=== PATIENT | female | born 1945 | race Caucasian/White ===

== ENCOUNTER 2020-06-24 13:31 | Emergency (ER) | payer MEDICARE ==
[2020-06-24 14:21] VITALS: BP 138/62; PULSE 92; RESP 18; TEMP 98
--- NOTE | 2020-06-24 14:57 | XR ---
Result: Clinical History: Pain status post fall. Comparison: None available. Technique: 3 views of the right ankle. 3 views of the right foot. Findings: The bone mineralization is age-appropriate. Right ankle: There is no acute fracture or dislocation. The visualized osseous structures are in oswaldo tomic alignment. Moderate Achilles related calcaneal enthesopathy. Otherwise the joint spaces are pr eserved. The talar dome is intact and the ankle mortise is congruent. Right foot: There is questionable cortical irregularity of the second metatarsal shaft. The remainin g visualized osseous structures are in anatomic alignment. There are scattered mild degenerative penny nges. IMPRESSION: Questionable nondisplaced fracture of the second metatarsal. Recommend correlation with point tendern ess and repeat imaging in 7-10 days as indicated. No acute fracture of the right ankle.
--- NOTE | 2020-06-24 15:17 | ED ---
Lower Extremity Injury HPI - General Chief Complaint: Extremity Injury, Lower Stated Complaint: Pain in foot Source: patient, RN notes reviewed Mode of arrival: wheelchair Limitations: no limitations - History of Present Illness Initial Comments: Patient is a 74-year-old female that presents to the emergency department complaining of right foot pain on the lateral aspect. She notes that she was walking outside to grab her mail went to step up on her porch with a right foot and felt a crunching popping noise. She noted that she didn't roll it twisted or fall. She wanted to come in to make sure everything was okay due to some pain this been constant since yesterday. She denied the need for any pain medication as it was tolerable. She notes that she can walk on it is just uncomfortable. She denied any weakness numbness tingling swelling decreased range of motion or strength chest pain shortness of breath headache nausea vomiting diarrhea constipation fever fatigue chills - Related Data Allergies Allergy/AdvReac Type Severity Reaction Status Date / Time grapefruit Allergy Rash/Hives Verified 06/24/20 14:22 orange Allergy Rash/Hives Verified 06/24/20 14:22 tomato Allergy Rash/Hives Verified 06/24/20 14:22 amoxicillin [From Augmentin] AdvReac Abdominal Verified 06/24/20 14:22 Pain clavulanic acid AdvReac Abdominal Verified 06/24/20 14:22 [From Augmentin] Pain Review of Systems ROS Statement: Those systems with pertinent positive or pertinent negative responses have been documented in the HPI. ROS Other: All systems not noted in ROS Statement are negative. Past Medical History Past Medical History: Diabetes Mellitus, Hyperlipidemia Additional Past Medical History / Comment(s): chronic broncitis- takes breathing treatments History of Any Multi-Drug Resistant Organisms: None Reported Past Surgical History: Section, Joint Replacement, Orthopedic Surgery Past Psychological History: No Psychological Hx Reported Smoking Status: Former smoker Past Alcohol Use History: Rare Past Drug Use History: None Reported General Exam Limitations: no limitations General appearance: alert, in no apparent distress, obese Head exam: Present: atraumatic, normocephalic, normal inspection Eye exam: Present: normal appearance, PERRL, EOMI. Absent: scleral icterus, conjunctival injection, periorbital swelling Neck exam: Present: normal inspection. Absent: tenderness, meningismus, lymphadenopathy Respiratory exam: Present: normal lung sounds bilaterally. Absent: respiratory distress, wheezes, rales, rhonchi, stridor Cardiovascular Exam: Present: regular rate, normal rhythm, normal heart sounds. Absent: systolic murmur, diastolic murmur, rubs, gallop, clicks GI/Abdominal exam: Present: soft, normal bowel sounds. Absent: distended, tenderness, guarding, rebound, rigid Extremities exam: Present: normal inspection, full ROM, normal capillary refill, other (No point tenderness over second metatarsal, patient states pain is mostly on the lateral aspect of the foot.). Absent: tenderness, pedal edema, joint swelling, calf tenderness Neurological exam: Present: alert, oriented X3, CN II-XII intact Psychiatric exam: Present: normal affect, normal mood Skin exam: Present: warm, dry, intact, normal color. Absent: rash Course Vital Signs 06/24/20 14:17 Temperature 98 F Pulse Rate 92 Respiratory 18 Rate Blood Pressure 138/62 O2 Sat by Pulse 95 Oximetry Medical Decision Making - Medical Decision Making 74-year-old female with right foot pain on the lateral aspect. Right foot and ankle x-ray ordered. X-ray showed a questionable nondisplaced fracture of the second metatarsal repeat x-rays if pain continues. Patient declined the need for any pain medication or splinting as there was no point tenderness over that aspect of the foot. Also likely a foot sprain due to physical exam findings and x-ray findings. Patient states that she has Tylenol Motrin at home that she can take and does not need any thinks in to her pharmacy. Case discussed with Dr. Mary, patient can discharge home with follow-up to primary care. - Radiology Data Radiology results: report reviewed, image reviewed Right ankle and foot x-ray: Questionable nondisplaced fracture of the second metatarsal shaft. Recommend correlation with point tenderness and repeat imaging in 7-10 days as indicated. No acute fracture of the right ankle. Disposition Clinical Impression: Foot sprain, Right ankle sprain Disposition: HOME SELF-CARE Condition: Stable Instructions (If sedation given, give patient instructions): Ankle Sprain (ED), Foot Sprain (ED) Additional Instructions: Please return to the Emergency Department if symptoms worsen or any other concerns. Follow-up primary care in 3-5 days. If any tenderness or pain over the second toe occurs please return for follow-up imaging. Use as tolerated, try to keep it elevated with ice and compression. Continue to take [id number] anti-inflammatories for any symptomatic management. Is patient prescribed a controlled substance at d/c from ED?: No Referrals: Eloy Rudolph DO [Primary Care Provider] - 1-2 days Time of Disposition: 15:17
== END 2020-06-24 15:50 | disposition home or self-care (01) ==
LOC: EC 13:31
DX: S93.601A Unspecified sprain of right foot, initial encounter (principal); S93.401A Sprain of unspecified ligament of right ankle, initial encounter; I10 Essential (primary) hypertension; E78.5 Hyperlipidemia, unspecified; Z87.891 Personal history of nicotine dependence; X58.XXXA Exposure to other specified factors, initial encounter; Y93.01 Activity, walking, marching and hiking
CPT/HCPCS: 99283

== ENCOUNTER 2020-08-04 13:14 | Emergency (ER) | payer MEDICARE ==
[2020-08-04 13:56] VITALS: BP 138/60; PULSE 115; RESP 18; TEMP 97.9
--- NOTE | 2020-08-04 14:38 | ED ---
ENT HPI - General Chief complaint: ENT Stated complaint: R face swelling Time Seen by Provider: 08/04/20 14:07 Source: patient Mode of arrival: ambulatory Limitations: no limitations - History of Present Illness Initial comments: 74-year-old diabetic female presents emergency Department with a chief complaint of facial swelling. Patient reports she woke up this morning and noticed a "knot" near the angle of the right mandible. Patient reports it gradually increased and swelling. States she is not able to fully open the mouth and it is tender to the touch. She does report slight erythema over the skin but not significant. Denies any injuries to the region. She does wear dentures, top and bottom. She denies any discharge from inside of the mouth. Denies any pain in the ear or any posterior auricular erythema or swelling. - Related Data Allergies Allergy/AdvReac Type Severity Reaction Status Date / Time grapefruit Allergy Rash/Hives Verified 08/04/20 13:56 orange Allergy Rash/Hives Verified 08/04/20 13:56 tomato Allergy Rash/Hives Verified 08/04/20 13:56 amoxicillin [From Augmentin] AdvReac Abdominal Verified 08/04/20 13:56 Pain clavulanic acid AdvReac Abdominal Verified 08/04/20 13:56 [From Augmentin] Pain Review of Systems ROS Statement: Those systems with pertinent positive or pertinent negative responses have been documented in the HPI. ROS Other: All systems not noted in ROS Statement are negative. Past Medical History Past Medical History: Diabetes Mellitus, Hyperlipidemia Additional Past Medical History / Comment(s): chronic broncitis- takes breathing treatments History of Any Multi-Drug Resistant Organisms: None Reported Past Surgical History: Section, Joint Replacement, Orthopedic Surgery Past Psychological History: No Psychological Hx Reported Smoking Status: Former smoker Past Alcohol Use History: Rare Past Drug Use History: None Reported General Exam Limitations: no limitations General appearance: alert, in no apparent distress Head exam: Present: atraumatic, normocephalic, normal inspection Eye exam: Present: normal appearance, PERRL, EOMI Pupils: Present: normal accommodation ENT exam: Present: normal exam, mucous membranes moist, TM's normal bilaterally, normal external ear exam (No signs of otitis externa. No signs of mastoiditis.). Absent: normal oropharynx (Right-sided facial swelling over the parotid gland. She does have top and bottom dentures. No signs of pustular discharge near the parotid duct in the intraoral cavity.) Neck exam: Present: normal inspection, full ROM. Absent: tenderness Respiratory exam: Present: normal lung sounds bilaterally. Absent: respiratory distress, wheezes, rales, rhonchi, stridor, chest wall tenderness, accessory muscle use Cardiovascular Exam: Present: regular rate, normal rhythm, normal heart sounds. Absent: systolic murmur, diastolic murmur Extremities exam: Present: normal inspection, full ROM, normal capillary refill. Absent: tenderness, pedal edema, joint swelling Back exam: Present: normal inspection, full ROM. Absent: tenderness, CVA tenderness (R), CVA tenderness (L) Neurological exam: Present: alert, oriented X3 Psychiatric exam: Present: normal affect, normal mood Skin exam: Present: warm, dry, intact, normal color Course Vital Signs 08/04/20 13:52 Temperature 97.9 F Pulse Rate 115 H Respiratory 18 Rate Blood Pressure 138/60 O2 Sat by Pulse 95 Oximetry Medical Decision Making - Medical Decision Making 74-year-old female presents emergency Department with chief complaint of right- sided facial swelling. On physical examination, tenderness and swelling over the right parotid gland. However, there is no pustular discharge in the intraoral cavity. I suspect possible parotitis. She is diabetic. I did advise warm compresses and applying lemon drops or any food that would promote salivary secretion. Patient is ALLERGIC to amoxicillin so I will start her on clindamycin. Return parameters were thoroughly discussed the patient was understanding and agreeable. Case discussed with Disposition Clinical Impression: Swelling of right side of face Disposition: HOME SELF-CARE Condition: Stable Instructions (If sedation given, give patient instructions): Sialoadenitis (ED) Additional Instructions: Take prescribed medication as directed. Apply warm compresses. Apply small lemon drops or anything to promote salivary secretion. Return to emergency department if symptoms worsen. Is patient prescribed a controlled substance at d/c from ED?: No Referrals: Eloy Rudolph DO [Primary Care Provider] - 1-2 days Time of Disposition: 14:38
== END 2020-08-04 14:48 | disposition home or self-care (01) ==
LOC: EC 13:14
DX: R22.0 Localized swelling, mass and lump, head (principal); E11.9 Type 2 diabetes mellitus without complications; E78.5 Hyperlipidemia, unspecified; Z87.891 Personal history of nicotine dependence; Z88.0 Allergy status to penicillin; Z88.1 Allergy status to other antibiotic agents
CPT/HCPCS: 99282

== ENCOUNTER → 2020-10-16 | Outpatient (CLI) | payer MEDICARE ==
--- NOTE | 2020-10-16 16:17 | XR ---
EXAMINATION TYPE: XR foot complete RT DATE OF EXAM: 10/16/2020 COMPARISON: 06/24/2020 HISTORY: 75-year-old female with right foot pain TECHNIQUE: 3 views FINDINGS: Moderate degenerative change first MTP joint with joint space narrowing, marginal spurring, and bunion formation. Osteopenia. Stable os peroneum. Fragmented enthesopathy at the Achilles insert ion, posterior calcaneus is unchanged. No acute fracture, subluxation, dislocation seen. IMPRESSION: Osteopenia and moderate first MTP joint OA. No acute osseous abnormality seen.
== END | disposition home or self-care (01) ==
LOC: RADXRMAIN 15:07
PROVIDERS: ATTEND Family Medicine
DX: M19.071 Primary osteoarthritis, right ankle and foot (principal); M85.871 Other specified disorders of bone density and structure, right ankle and foot

== ENCOUNTER → 2021-01-30 | Outpatient (CLI) | payer MEDICARE ==
--- NOTE | 2021-01-31 04:38 | BD ---
EXAMINATION TYPE: Axial Bone Density DATE OF EXAM: 01/30/2021 COMPARISON: 2012 CLINICAL HISTORY: 75-year-old female postmenopausal screening Nuclear Medicine Study in the last 2 weeks: NO Barium Study in the last week: NO : NO Height: 66 Weight: 277.5 FRAX RISK QUESTIONS: Alcohol (3 or more units per day): NO Family History (Parent hip fracture): NO Glucocorticoids (More than 3mos): NO (Ex: prednisone, prednisolone, methylprednisolone, dexamethasone, and hydrocortisone). History of Fracture in Adulthood: YES Secondary Osteoporosis: 1. Type 1 Diabetes: TYPE 2 2. Hyperthyroidism: NO 3. Menopause before 45: NO 4. Malnutrition: NO 5. Chronic liver disease: NO Rheumatoid Arthritis: NO Current Tobacco Use: NO RISK FACTORS HISTORY OF: Surgery to Spine/Hip(right/left)/Wrist (right/left): NO When: Family History of Osteoporosis: NO Active: NO Diet low in dairy products/other sources of calcium: NO Postmenopausal woman: YES If Premenopausal, do you have irregular periods: Take estrogen and/or progesterone medications: NO How long: Lost more than 2 inches in height since high school: YES Frequent falls: NO Poor Health: GOOD Hyperparathyroidism: NO Adrenal Insufficiency: NO MEDICATIONS: Prednisone or other steroids: NO How Long: Thyroid Medications: NO Which medication: How Long: Osteoporosis Medications: NO Which medication: How Long: Additional Medications: GLIPIZIDE, DONEPEZIL, LORAZEPAM, SIMVASTATIN, DUONEB, ROPINIROLE, ASPIRIN BUM ETANIDE, POT CHLOR ER, LATANOPROST, LUTEIN AND ZEAXANTHIN VIT C AND VIT D AND WOMEN'S ONE A DAY. Additional History: EXAM MEASUREMENTS: Bone mineral densitometry was performed using the [employer] System. Bone mineral density as measured about the Lumbar spine is: ----- L1-L4(G/cm2): 1.173 T Score Values are as follows: ----- L2: -0.9 ----- L3: 1.5 ----- L4: 0.4 ----- L1-L4: -0.1 Bone mineral density has: INCREASED 0.1 % since study of: 2012 Bone mineral density about the R hip (g/cm2): 0.818 Bone mineral density about the L hip (g/cm2): 0.860 T Score values are as follows: -----R Neck: -1.6 -----L Neck: -1.3 -----R Total: -1.8 -----L Total: -1.3 Bone mineral density has: DECREASED -4.4 % since study of: 2013 IMPRESSION: Osteopenia (T Score between -2.5 and -1). There is slightly increased risk of fracture and the patient may be considered for treatment. Re-Screen 2-5 years. NOTE: T-SCORE=SD OF THE YOUNG ADULT MEAN.
== END | disposition home or self-care (01) ==
LOC: RADBDWWP 14:51
PROVIDERS: ATTEND Family Medicine
DX: M85.89 Other specified disorders of bone density and structure, multiple sites (principal); Z78.0 Asymptomatic menopausal state; Z79.82 Long term (current) use of aspirin; Z79.84 Long term (current) use of oral hypoglycemic drugs
CPT/HCPCS: 77080

== ENCOUNTER 2021-06-26 11:46 | Emergency (ER) | payer MEDICARE ==
[2021-06-26 11:56] VITALS: BP 149/54; PULSE 99; RESP 20; TEMP 97.1
[2021-06-26] MEDS ORDERED: HYDROcodone/APAP 5-325MG 1 EACH TAB PO STA (12:16)
[2021-06-26] MEDS ORDERED: DIPH,PERTUS(ACELL)TETVAC-LF 0.5 ML VIAL IM ONE (12:16)
--- NOTE | 2021-06-26 13:14 | XR ---
EXAMINATION TYPE: XR ribs LT w pa chest xray, 5 views DATE OF EXAM: 06/26/2021 Comparison: 02/22/2013 Clinical History: 75-year-old female left rib pain after falling, trauma Findings: Heart upper limits of normal in size. Mild atherosclerotic arch calcifications. Hyperinflation. Stran dy atelectasis in the lower lungs. Mild to moderate degenerative change left glenohumeral joint. Mild to moderate degenerative changes bilateral AC joints. No displaced rib fractures seen. Impression: 1. COPD and borderline heart size. Strandy areas of atelectasis lower lungs. No acute cardiopulmonary process. 2. No displaced left rib fracture seen.
--- NOTE | 2021-06-26 13:16 | XR ---
EXAMINATION TYPE: XR wrist complete LT DATE OF EXAM: 06/26/2021 COMPARISON: NONE HISTORY: 75-year-old female left wrist pain after falling TECHNIQUE: 4 views FINDINGS: Osteopenia. Moderate degenerative change at the basal joint of the thumb. There is some fragmentation at the radial styloid process with overlying soft tissue swelling. The radiocarpal and distal radial ulnar joint as well as the midcarpal compartment appear intact. Some bony irregularity along the mary ricardo triquetrum also noted on the lateral view with some overlying soft tissue swelling. IMPRESSION: Suspect some chip fractures from the radial styloid process with overlying soft tissue swelling. Roxanne haley, suspect some chip fractures from the dorsal triquetrum on the lateral view with soft tissue sw elling. Osteopenia. Moderate OA at the base of the thumb.
--- NOTE | 2021-06-26 13:51 | CT ---
EXAMINATION TYPE: CT brain wo con, CT facial bones wo con DATE OF EXAM: 06/26/2021 COMPARISON: None available HISTORY: Fall CT DLP: 1322.4 (accession [id number]), included in brain (accession [id number]) mGycm Automated exposure control for dose reduction was used. TECHNIQUE: CT scan of the brain and facial bones is performed without IV contrast administration. FINDINGS: Partial empty sella. Brain volume loss changes, likely age-related. Scattered arterial atheroscleroti c calcifications. No acute intracranial hemorrhage. No gross acute cortical infarct. No midline shift , herniation or ventriculomegaly. Unremarkable rangel-white matter differentiation, basal cisterns and CP angles. No gross space-occupyin g lesion, vasogenic edema or mass effect. No definite acute calvarial bone fracture identified. Osteopenia. Degenerative changes of the visuali zed portion of the cervical spine. Clear mastoid air cells. Fracture of the anterior aspect of the bony nasal septum with convexity to the right side. Soft tissu e swelling/hematoma overlying the nasal bones and the medial aspect of the left orbit. Mild mucosal thickening of the ethmoid air cells and left sphenoid sinus compartment. Clear remainder of the paranasal sinuses. Unremarkable orbits. No other definite acute facial bone fracture identifi ed. IMPRESSION: No acute intracranial posttraumatic sequela or acute calvarial bone fracture. Fractured anterior aspe ct of the bony nasal septum with bony nasal septum deviation as described above. Associated overlying soft tissue swelling/hematoma. No other definite acute facial bone fracture identified. Incidental f indings as described above.
--- NOTE | 2021-06-26 15:31 | ED ---
Fall HPI - General Chief Complaint: Fall Stated Complaint: Fall-Facial injury Time Seen by Provider: 06/26/21 12:05 Source: patient Mode of arrival: EMS - History of Present Illness Initial Comments: Patient presents to the emerge department after a trip and fall. She injured her nose and left upper extremity. She has no belly or back pain. She injured her left upper chest as well. She has taken no medicine for this. She had no loss of consciousness. She has no nausea or vomiting. She has no pain with extraocular movements. She has no change in her vision or hearing. She has no pain or injuries to the legs. - Related Data Home Medications Medication Instructions Recorded Confirmed Ascorbic Acid [Vitamin C] 500 mg PO DAILY 06/26/21 06/26/21 Aspirin EC [Ecotrin Low Dose] 81 mg PO DAILY 06/26/21 06/26/21 Bumetanide 2 mg PO DAILY@1800 06/26/21 06/26/21 Cholecalciferol (Vitamin D3) 75 mcg PO DAILY 06/26/21 06/26/21 [Vitamin D3 (3000 Iu)] Donepezil [Aricept] 10 mg PO HS 06/26/21 06/26/21 LORazepam [Ativan] 1 mg PO BID PRN 06/26/21 06/26/21 Latanoprost/Pf [Latanoprost 0.005% 1 drop BOTH EYES HS 06/26/21 06/26/21 Eye Drop] Lutein And Zeaxanthin 1 tab PO DAILY 06/26/21 06/26/21 Potassium Chloride ER [K-Dur 20] 20 meq PO BID 06/26/21 06/26/21 Simvastatin [Zocor] 20 mg PO HS 06/26/21 06/26/21 Vitamin E (Dl,Tocopheryl Acet) 400 unit PO DAILY 06/26/21 06/26/21 [Vitamin E (400 Iu = 180 mg)] glipiZIDE XL [Glucotrol XL] 2.5 mg PO DAILY 06/26/21 06/26/21 rOPINIRole HCL [Requip] 1 mg PO HS 06/26/21 06/26/21 Allergies Allergy/AdvReac Type Severity Reaction Status Date / Time grapefruit Allergy Rash/Hives Verified 06/26/21 14:04 orange Allergy Rash/Hives Verified 06/26/21 14:04 tomato Allergy Rash/Hives Verified 06/26/21 14:04 amoxicillin [From Augmentin] AdvReac Abdominal Verified 06/26/21 14:04 Pain clavulanic acid AdvReac Abdominal Verified 06/26/21 14:04 [From Augmentin] Pain Review of Systems ROS Statement: Those systems with pertinent positive or pertinent negative responses have been documented in the HPI. ROS Other: All systems not noted in ROS Statement are negative. Past Medical History Past Medical History: Diabetes Mellitus, Hyperlipidemia Additional Past Medical History / Comment(s): chronic broncitis- takes breathing treatments History of Any Multi-Drug Resistant Organisms: None Reported Past Surgical History: Section, Joint Replacement, Orthopedic Surgery Past Psychological History: No Psychological Hx Reported Smoking Status: Former smoker Past Alcohol Use History: Rare Past Drug Use History: None Reported General Exam Limitations: no limitations General appearance: alert, in no apparent distress Head exam: Present: atraumatic, normocephalic, normal inspection Eye exam: Present: normal appearance, PERRL, EOMI. Absent: scleral icterus, conjunctival injection, periorbital swelling ENT exam: Present: normal exam, mucous membranes moist, other (No evidence of septal hematoma) Neck exam: Present: normal inspection. Absent: tenderness, meningismus, lymphadenopathy Respiratory exam: Present: normal lung sounds bilaterally. Absent: respiratory distress, wheezes, rales, rhonchi, stridor Cardiovascular Exam: Present: regular rate, normal rhythm, normal heart sounds. Absent: systolic murmur, diastolic murmur, rubs, gallop, clicks GI/Abdominal exam: Present: soft, normal bowel sounds. Absent: distended, tenderness, guarding, rebound, rigid Extremities exam: Present: normal inspection, full ROM, tenderness (Left upper extremity tenderness), normal capillary refill. Absent: pedal edema, joint swelling, calf tenderness Back exam: Present: normal inspection Neurological exam: Present: alert, oriented X3, CN II-XII intact Psychiatric exam: Present: normal affect, normal mood Skin exam: Present: warm, dry, normal color, other (Abrasion over the nose). Absent: rash Course Vital Signs 06/26/21 11:49 Temperature 97.1 F L Pulse Rate 99 Respiratory 20 Rate Blood Pressure 149/54 O2 Sat by Pulse 100 Oximetry Procedures - Orthopedic Splinting/Casting Injury #1 Side: left Upper Extremity Injury Location: wrist Upper Extremity Immobilizer: volar splint Medical Decision Making - Medical Decision Making Patient presents with injuries from a fall. X-ray of the chest and ribs are negative. CT of the face reveals a nasal bone fracture. She has no evidence of septal hematoma. Her abrasion is not bleeding. I updated her tetanus immunization and gave her pain medicine. She has chipped fractures in the left wrist. I applied a splint. She remains neurovascularly intact. She is stable for discharge. Disposition Clinical Impression: Fall, Wrist fracture Disposition: HOME SELF-CARE Condition: Good Instructions (If sedation given, give patient instructions): Fall Prevention for Older Adults (ED) Is patient prescribed a controlled substance at d/c from ED?: No Referrals: Eloy Rudolph DO [Primary Care Provider] - 1-2 days Andrew Munguia MD [STAFF PHYSICIAN] - 1-2 days Eugenio Mead MD [STAFF PHYSICIAN] - 1-2 days
== END 2021-06-26 15:55 | disposition home or self-care (01) ==
LOC: EC 11:46
DX: S52.512A Displaced fracture of left radial styloid process, initial encounter for closed fracture (principal); E11.9 Type 2 diabetes mellitus without complications; E78.5 Hyperlipidemia, unspecified; Z79.82 Long term (current) use of aspirin; Z88.0 Allergy status to penicillin; Z87.891 Personal history of nicotine dependence; W01.0XXA Fall on same level from slipping, tripping and stumbling without subsequent striking against object, initial encounter
CPT/HCPCS: 29125; 70450; 70486; 90471; 90715; 99284

== ENCOUNTER 2021-07-05 09:09 | Day surgery (SDC) | payer MEDICARE ==
[2021-07-04 09:38] VITALS: BMI 43.4
[~2021-07-05 09:09] MED LIST: FAMOTIDINE 20 MG/2 ML VIAL IV PRN; LACTATED RINGERS 1,000 ML IV SCH; ONDANSETRON 4 MG/2 ML VIAL IVP ONE
[2021-07-05 10:23] LABS: Glucose,Whole Blood 152 mg/dL (75-99)
[2021-07-05] MEDS: OXYMETAZOLINE 0.05% NASL SPRAY 1 SPRAY BOTTLE EA NOSTRIL PRN ×5 (10:26→10:49)
[2021-07-05] MEDS ORDERED: LIDOCAINE 1% INJ 10MG/ML (20 ML MDV) ONE (11:01)
[2021-07-05] MEDS ORDERED: fentaNYL (PF) 50 MCG/ML 2 ML AMP ONE (11:01)
[2021-07-05] MEDS ORDERED: SUCCINYLCHOLINE CHLORIDE 100 MG/5 ML SYR IV ONE (11:01)
[2021-07-05] MEDS ORDERED: PROPOFOL 10 MG/ML 20 ML VIAL IV ONE (11:01)
[2021-07-05] MEDS ORDERED: PHENYLEPHRINE-0.9% NACL SYG 1,000 MCG/10 ML SYRINGE ONE (11:01)
[2021-07-05] MEDS ORDERED: LIDOCAINE 1%-EPI 1:100,000 20 ML VIAL SQ ONE (11:25)
[2021-07-05 12:07] VITALS: RESP 16; TEMP 97.4
[2021-07-05] MEDS: fentaNYL (PF) 50 MCG/ML 2 ML AMP IV PRN (12:20)
--- NOTE | 2021-07-05 12:24 | P.OP ---
Date of Procedure: 07/05/21 Preoperative Diagnosis: Closed nasal bone fracture Deviated nasal septum Recurring epistaxis left side Postoperative Diagnosis: Same Procedure(s) Performed: Closed reduction of a nasal bone fracture with stabilization Septoplasty Complex cauterization midportion left septum utilizing silver nitrate Anesthesia: DARRELL Surgeon: Todd Almaraz Estimated Blood Loss (ml): 20 Pathology: other (Septal) Condition: stable Disposition: PACU Indications for Procedure: This patient had a fall and struck her nose and suffered a arrange septal deformity and fractured nasal bone. In addition for many years been having epistaxis on the left side of the nose and is requesting cauterization. All risks, benefits and alternative therapies were discussed in detail. Consent was obtained and all questions were answered. Operative Findings: Patient had exposed vessels along the floor the nose at the midportion on the left side. Patient had a septal hematoma along with a 2 arrange septal fracture and nasal bone fracture Description of Procedure: Patient was taken to the operative room placed in the supine position a general inhalation anesthetic was administered to the patient by mask and subsequently intubated with a cuffed endotracheal tube by the department of anesthesia with a functioning IV line in place. The patient was monitored throughout the entire case by the department of anesthesia. Face was sterilely prepped and draped in usual fashion and the septum lateral nasal wall were injected with lidocaine 1% with epinephrine 1 100,010 minutes were allowed wait for full vasoconstrictive effects to take place. A caudal incision was made over the caudal portion of the left septum down the mucoperichondrium mucoperichondrial flap was developed to the extent of visualization on the left side with a crossover incision made with for the mucoperichondrial flap development to the extent of visualization. With use of crosshatching incisions and removal of redundant strips of septal cartilage the septum was straightened is a large hematoma that was present upon entering the mucosal flaps posteriorly we evacuated the hematoma. The septum was placed back on the vomerian groove we closed the incision with a 4-0 Vicryl in a quilting stitch was used to reapproximate the septal flaps. [place] splints were placed at the end of the case and suture fixated. The patient also had some friable vessels seen on the left midportion of the septum near the floor. This appeared to be the source of the epistaxis. Cauterization utilizing silver nitrate was placed. The nasal bones were placed back in position with a Boyes nasal elevator and a Walsham forceps. After the nasal bones were placed back in position the nose was taped and casted in usual fashion. Excellent approximation of the nasal bones was made. A thermoplastic splints were placed and fixated at the patient tolerated this well. Follow-up will be in the office in 1 week for recheck.
[2021-07-05] MEDS ORDERED: oxyCODONE-APAP 5-325MG 1 EACH TAB ONE (13:31)
[2021-07-05] MEDS ORDERED: oxyCODONE-APAP 5-325MG 1 EACH TAB PO ONE (13:33)
[2021-07-05 13:47] VITALS: BP 137/70; PULSE 100
== END 2021-07-05 14:35 | disposition home or self-care (01) ==
LOC: OR 09:09
PROVIDERS: ATTEND Otolaryngology
DX: S02.2XXA Fracture of nasal bones, initial encounter for closed fracture (principal); J34.2 Deviated nasal septum; R04.0 Epistaxis; W01.0XXA Fall on same level from slipping, tripping and stumbling without subsequent striking against object, initial encounter; E11.9 Type 2 diabetes mellitus without complications; E78.5 Hyperlipidemia, unspecified; J42 Unspecified chronic bronchitis; H40.9 Unspecified glaucoma; Z79.899 Other long term (current) drug therapy; Z79.84 Long term (current) use of oral hypoglycemic drugs; Z79.52 Long term (current) use of systemic steroids; Z79.82 Long term (current) use of aspirin; Z88.0 Allergy status to penicillin; Z91.018 Allergy to other foods; Z87.891 Personal history of nicotine dependence; Z97.2 Presence of dental prosthetic device (complete) (partial); Z82.61 Family history of arthritis
CPT/HCPCS: 84132; 88300; 21320; 30520; 30901; J2405; J2001; J3010; J2370; J0330; J2704

== ENCOUNTER → 2021-07-20 | Outpatient (CLI) | payer MEDICARE ==
--- NOTE | 2021-07-20 14:09 | XR ---
EXAMINATION TYPE: XR cervical spine comp DATE OF EXAM: 07/20/2021 CLINICAL HISTORY: pain COMPARISON: NONE TECHNIQUE: Frontal, lateral, oblique, swimmers, and open mouth view of the cervical spine are obtaine d. FINDINGS: The cervical spine is visualized in its entirety from C1 thru the top of T1 level. It is s atisfactory in alignment without evidence of acute fracture or dislocation. The pre-vertebral soft t issue appears within normal limits. Severe degenerative narrowing at C4-5 with mild narrowing at the remaining levels. The C1-C2 articulation is unremarkable on the open mouth view. The oblique images are within normal limits. IMPRESSION: No acute fracture or dislocation is seen in the cervical spine.ICD 10 NO FRACTURE, INITI AL EVALUATION
== END | disposition home or self-care (01) ==
LOC: RADXRMAIN 13:19
PROVIDERS: ATTEND Family Medicine
DX: M54.2 Cervicalgia (principal)
CPT/HCPCS: 72050

== ENCOUNTER → 2022-02-21 | Outpatient (CLI) | payer MEDICARE ==
--- NOTE | 2022-02-21 15:43 | XR ---
EXAMINATION TYPE: XR ribs RT DATE OF EXAM: 02/21/2022 COMPARISON: NONE HISTORY: 76-year-old female R07.82, right rib pain TECHNIQUE: 4 views FINDINGS: Moderate degenerative change AC joint. There may be some narrowing at the subacromial space with a sc lerosis at the greater tuberosity. Visualized right hemithorax shows no consolidation, pneumothorax, or pleural effusion. No displaced right rib fracture seen. IMPRESSION: No displaced right rib fracture seen. 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 Changes of chronic rotator cuff tendinopathy on the right.
== END | disposition home or self-care (01) ==
LOC: RADXRMAIN 10:56
PROVIDERS: ATTEND Family Medicine
DX: M19.011 Primary osteoarthritis, right shoulder (principal)

== ENCOUNTER 2023-12-22 17:37 | Inpatient (IN) | payer MEDICARE ==
--- NOTE | 2023-12-22 18:42 | ED ---
General Adult HPI - General Chief complaint: Shortness of Breath Stated complaint: SOB Time Seen by Provider: 12/22/23 18:18 Source: patient, EMS, RN notes reviewed Mode of arrival: EMS Limitations: no limitations - History of Present Illness Initial comments: Patient is a 78-year-old female presenting to the emergency department with concerns with difficulty breathing. Onset of symptoms was just today while making dinner. Patient states only light exertion. Patient states she has had a minimal cough recently. Patient does have COPD however this does not feel similar to it. No fever. No chest pain. No leg pain or leg swelling. - Related Data Home Medications Medication Instructions Recorded Confirmed Aspirin EC [Ecotrin Low Dose] 81 mg PO DAILY 06/26/21 07/04/21 Bumetanide [BUMEX] 2 mg PO 1800 06/26/21 07/04/21 Cholecalciferol (Vitamin D3) 50 mcg PO BID 06/26/21 07/04/21 [Vitamin D3 (3000 Iu)] Donepezil [Aricept] 10 mg PO HS 06/26/21 07/04/21 LORazepam [Ativan] 0.5 mg PO BID PRN 06/26/21 07/04/21 Latanoprost/Pf [Latanoprost 0.005% 1 drop BOTH EYES HS 06/26/21 07/04/21 Eye Drop] Lutein And Zeaxanthin 1 tab PO DAILY 06/26/21 07/04/21 Potassium Chloride ER [K-Dur 20] 20 meq PO QAM 06/26/21 07/04/21 Simvastatin [Zocor] 20 mg PO QAM 06/26/21 07/04/21 glipiZIDE XL [Glucotrol XL] 2.5 mg PO DAILY 06/26/21 07/04/21 rOPINIRole HCL [Requip] 1 mg PO HS 06/26/21 07/04/21 Multivitamins, Thera [Multivitamin 1 tab PO DAILY 07/04/21 07/04/21 (formulary)] Allergies Allergy/AdvReac Type Severity Reaction Status Date / Time grapefruit Allergy Rash/Hives Verified 12/22/23 17:44 orange Allergy Rash/Hives Verified 12/22/23 17:44 tomato Allergy Rash/Hives Verified 12/22/23 17:44 amoxicillin [From Augmentin] AdvReac Abdominal Verified 12/22/23 17:44 Pain clavulanic acid AdvReac Abdominal Verified 12/22/23 17:44 [From Augmentin] Pain Review of Systems ROS Statement: Those systems with pertinent positive or pertinent negative responses have been documented in the HPI. ROS Other: All systems not noted in ROS Statement are negative. Constitutional: Denies: fever Eyes: Denies: eye pain ENT: Denies: ear pain Respiratory: Reports: as per HPI Cardiovascular: Denies: chest pain Endocrine: Denies: fatigue Gastrointestinal: Denies: abdominal pain Musculoskeletal: Denies: back pain Past Medical History Past Medical History: COPD, Diabetes Mellitus, Hyperlipidemia, Memory Impairment, Osteoarthritis (OA) Additional Past Medical History / Comment(s): chronic bronchitis, tripped & fell on 06-26-21 & fx. nose, sprained left wrist-wearing brace, ribs sore but she states no fx.'s, swollen ankles History of Any Multi-Drug Resistant Organisms: None Reported Past Surgical History: Section, Joint Replacement, Orthopedic Surgery Additional Past Surgical History / Comment(s): C/S x2, left knee replaced, left shoulder surg., left CTS Past Anesthesia/Blood Transfusion Reactions: No Reported Reaction Past Psychological History: Anxiety Smoking Status: Former smoker General Exam Limitations: no limitations General appearance: alert, in no apparent distress Head exam: Present: normocephalic Eye exam: Present: normal appearance Neck exam: Present: normal inspection Respiratory exam: Present: normal lung sounds bilaterally Cardiovascular Exam: Present: normal rhythm, tachycardia GI/Abdominal exam: Present: soft. Absent: tenderness Extremities exam: Present: normal inspection. Absent: pedal edema, calf tenderness Neurological exam: Present: alert Psychiatric exam: Present: normal affect, normal mood Skin exam: Present: normal color Course Vital Signs 12/22/23 12/22/23 17:39 19:44 Temperature 97.4 F L Pulse Rate 109 H 111 H Respiratory 18 18 Rate Blood Pressure 129/56 140/61 O2 Sat by Pulse 99 97 Oximetry Medical Decision Making - Medical Decision Making Was pt. sent in by a medical professional or institution (, PA, TRANSPORTATION AIDE, urgent care, hospital, or alf...) When possible be specific @ -No Did you speak to anyone other than the patient for history (EMS, parent, family, police, friend...)? What history was obtained from this source @ -Family is present and helps confirm history of onset and previous COPD Did you review nursing and triage notes (agree or disagree)? Why? @ -I reviewed and agree with nursing and triage notes Were old charts reviewed (outside hosp., previous admission, EMS record, old EKG, old radiological studies, urgent care reports/EKG's, alf records)? Report findings @ -Previous labs reviewed including hemoglobin and BUN which are different from today Differential Diagnosis (chest pain, altered mental status, abdominal pain women, abdominal pain men, vaginal bleeding, weakness, fever, dyspnea, syncope, headache, dizziness, GI bleed, back pain, seizure, CVA, palpatations, mental health, musculoskeletal)? @ -Differential Dyspnea: Coronary syndrome, arrhythmia, tamponade, asthma, COPD, pulmonary embolism, pneumonia, pneumothorax, pulmonary effusion, anaphylaxis, diabetic ketoacidosis, flailed chest, pulmonary contusion, diaphragmatic rupture, anemia, neuromuscular, this is not meant to be an all-inclusive list. EKG interpreted by me (3pts min.). @ -As above X-rays interpreted by me (1pt min.). @ -Chest x-ray reveals no acute abnormality CT interpreted by me (1pt min.). @ -None done U/S interpreted by me (1pt. min.). @ -None done What testing was considered but not performed or refused? (CT, X-rays, U/S, labs)? Why? @ -None What meds were considered but not given or refused? Why? @ -None Did you discuss the management of the patient with other professionals (professionals i.e. , PA, TRANSPORTATION AIDE, lab, RT, psych nurse, social work supervisor, staff air defense officer, teacher, supply officer, manager rn case)? Give summary @ -Case discussed with practitioner Roxann Obregon covering [facility] for Dr. Rudolph who will admit Was smoking cessation discussed for >3mins.? @ -No Was critical care preformed (if so, how long)? @ -No Were there social determinants of health that impacted care today? How? (Homelessness, low income, unemployed, alcoholism, drug addiction, transportation, low edu. Level, literacy, decrease access to med. care, [facility], rehab)? @ -No Was there de-escalation of care discussed even if they declined (Discuss DNR or withdrawal of care, Hospice)? DNR status @ -No What co-morbidities impacted this encounter? (DM, HTN, Smoking, COPD, CAD, Cancer, CVA, ARF, Chemo, Hep., AIDS, mental health diagnosis, sleep apnea, morbid obesity)? @ -COPD history Was patient admitted / discharged? Hospital course, mention meds given and route, prescriptions, significant lab abnormalities, going to OR and other pertinent info. @ -Patient presents with dyspnea starting today with normal lung sounds. D- dimer negative. Patient does have some mild tachycardia and elevation of BUN. Patient also has decreased from previous hemoglobin. Rectal exam with black stool. Patient will be admitted with GI consult. Admission orders written. Undiagnosed new problem with uncertain prognosis? @ -No Drug Therapy requiring intensive monitoring for toxicity (Heparin, Nitro, Insulin, Cardizem)? @ -No Were any procedures done? @ -No Diagnosis/symptom? @ -GI hemorrhage Acute, or Chronic, or Acute on Chronic? @ -Acute Uncomplicated (without systemic symptoms) or Complicated (systemic symptoms)? @ -Default Side effects of treatment? @ -No Exacerbation, Progression, or Severe Exacerbation? @ -No Poses a threat to life or bodily function? How? (Chest pain, [place], [place], pneumonia, PE, COPD, DKA, ARF, appy, cholecystitis, CVA, Diverticulitis, Homicidal, Suicidal, threat to staff... and all critical care pts) @ -Threat to hematological status - Lab Data Result diagrams: 12/22/23 18:44 12/22/23 18:44 Lab Results 12/22/23 12/22/23 12/22/23 Range/Units 18:44 18:44 18:44 WBC 10.3 (3.8-10.6) k/uL RBC 3.50 L (3.80-5.40) m/uL Hgb 10.1 L (11.4-16.0) gm/dL Hct 31.7 L (34.0-46.0) % MCV 90.6 (80.0-100.0) fL MCH 28.8 (25.0-35.0) pg MCHC 31.8 (31.0-37.0) g/dL RDW 13.6 (11.5-15.5) % Plt Count 240 (150-450) k/uL MPV 8.5 Neutrophils % 79 % Lymphocytes % 12 % Monocytes % 5 % Eosinophils % 2 % Basophils % 0 % Neutrophils # 8.1 H (1.3-7.7) k/uL Lymphocytes # 1.3 (1.0-4.8) k/uL Monocytes # 0.5 (0-1.0) k/uL Eosinophils # 0.2 (0-0.7) k/uL Basophils # 0.0 (0-0.2) k/uL PT 11.1 (10.0-12.5) sec INR 1.0 (<1.2) APTT 26.7 (22.0-30.0) sec D-Dimer 0.42 (<0.60) mg/L FEU Sodium 136 L (137-145) mmol/L Potassium 4.1 (3.5-5.1) mmol/L Chloride 107 (98-107) mmol/L Carbon Dioxide 22 (22-30) mmol/L Anion Gap 7 mmol/L BUN 76 H (7-17) mg/dL Creatinine 0.90 (0.52-1.04) mg/dL Est GFR (CKD-EPI)AfAm 72 (>60 ml/min/1.73 sqM) Est GFR (CKD-EPI)NonAf 62 (>60 ml/min/1.73 sqM) Glucose 173 H (74-99) mg/dL Plasma Lactic Acid Tobias (0.7-2.0) mmol/L Calcium 9.0 (8.4-10.2) mg/dL Magnesium 2.0 (1.6-2.3) mg/dL Total Bilirubin 0.3 (0.2-1.3) mg/dL AST 18 (14-36) U/L ALT 13 (4-34) U/L Alkaline Phosphatase 93 (38-126) U/L Troponin I (0.000-0.034) ng/mL NT-Pro-B Natriuret Pep 91 pg/mL Total Protein 5.9 L (6.3-8.2) g/dL Albumin 3.5 (3.5-5.0) g/dL Influenza Type A (PCR) (Not Detectd) Influenza Type B (PCR) (Not Detectd) RSV (PCR) (Not Detectd) SARS-CoV-2 (PCR) (Not Detectd) 12/22/23 12/22/23 12/22/23 Range/Units 18:44 18:44 18:44 WBC (3.8-10.6) k/uL RBC (3.80-5.40) m/uL Hgb (11.4-16.0) gm/dL Hct (34.0-46.0) % MCV (80.0-100.0) fL MCH (25.0-35.0) pg MCHC (31.0-37.0) g/dL RDW (11.5-15.5) % Plt Count (150-450) k/uL MPV Neutrophils % % Lymphocytes % % Monocytes % % Eosinophils % % Basophils % % Neutrophils # (1.3-7.7) k/uL Lymphocytes # (1.0-4.8) k/uL Monocytes # (0-1.0) k/uL Eosinophils # (0-0.7) k/uL Basophils # (0-0.2) k/uL PT (10.0-12.5) sec INR (<1.2) APTT (22.0-30.0) sec D-Dimer (<0.60) mg/L FEU Sodium (137-145) mmol/L Potassium (3.5-5.1) mmol/L Chloride (98-107) mmol/L Carbon Dioxide (22-30) mmol/L Anion Gap mmol/L BUN (7-17) mg/dL Creatinine (0.52-1.04) mg/dL Est GFR (CKD-EPI)AfAm (>60 ml/min/1.73 sqM) Est GFR (CKD-EPI)NonAf (>60 ml/min/1.73 sqM) Glucose (74-99) mg/dL Plasma Lactic Acid Tobias 1.6 (0.7-2.0) mmol/L Calcium (8.4-10.2) mg/dL Magnesium (1.6-2.3) mg/dL Total Bilirubin (0.2-1.3) mg/dL AST (14-36) U/L ALT (4-34) U/L Alkaline Phosphatase (38-126) U/L Troponin I <0.012 (0.000-0.034) ng/mL NT-Pro-B Natriuret Pep pg/mL Total Protein (6.3-8.2) g/dL Albumin (3.5-5.0) g/dL Influenza Type A (PCR) Not Detected (Not Detectd) Influenza Type B (PCR) Not Detected (Not Detectd) RSV (PCR) Not Detected (Not Detectd) SARS-CoV-2 (PCR) Not Detected (Not Detectd) Disposition Clinical Impression: GI hemorrhage Disposition: ADMITTED IP TO THIS HOSP Is patient prescribed a controlled substance at d/c from ED?: No Referrals: Eloy Rudolph DO [Primary Care Provider] - 1-2 days Time of Disposition: 20:05
[2023-12-22 19:04] LABS: Basophils % (A) 0 %; Eosinophils # (A) 0.2 k/uL (0-0.7); Eosinophils % (A) 2 %; HCT 31.7 % (34.0-46.0); HGB 10.1 gm/dL (11.4-16.0); Lymphocytes # (A) 1.3 k/uL (1.0-4.8); Lymphocytes % (A) 12 %; MCH 28.8 pg (25.0-35.0); MCHC 31.8 g/dL (31.0-37.0); MCV 90.6 fL (80.0-100.0); Mean Platelet Volume 8.5; Monocytes # (A) 0.5 k/uL (0-1.0); Monocytes % (A) 5 %; Neutrophils # (A) 8.1 k/uL (1.3-7.7); Neutrophils % (A) 79 %; Platelet Count 240 k/uL (150-450); RDW 13.6 % (11.5-15.5); WBC 10.3 k/uL (3.8-10.6)
--- NOTE | 2023-12-22 19:04 | XR ---
EXAMINATION TYPE: XR chest 2V DATE OF EXAM: 12/22/2023 7:00 PM CLINICAL INDICATION: Female, 78 years old with history of difficulty breathing; [facility] COMPARISON: Chest radiographs from 02/21/2022 TECHNIQUE: XR chest 2V Frontal view of the chest. FINDINGS: Lungs/Pleura: There is flattening of the diaphragm with increased lucency of the lungs. No evidence o f pneumothorax, pleural effusion or focal consolidation. Pulmonary vascularity: Unremarkable. Heart/mediastinum: Cardiomediastinal silhouette is unremarkable. Musculoskeletal: No acute osseous pathology. IMPRESSION: 1. No acute cardiopulmonary disease process. 2. COPD changes. [facility], , 12/22/2023 7:02 PM
[2023-12-22 19:19] LABS: ALT 13 U/L (4-34); AST 18 U/L (14-36); African American GFR (CKD) 72 (>60 ml/min/1.73 sqM); Albumin 3.5 g/dL (3.5-5.0); Alkaline Phosphatase 93 U/L (38-126); Anion Gap 7 mmol/L; Blood Urea Nitrogen 76 mg/dL (7-17); Carbon Dioxide 22 mmol/L (22-30); Chloride 107 mmol/L (98-107); Glucose 173 mg/dL (74-99); Non-African American GFR(CKD) 62 (>60 ml/min/1.73 sqM); Potassium 4.1 mmol/L (3.5-5.1); Sodium 136 mmol/L (137-145); Total Bilirubin 0.3 mg/dL (0.2-1.3); Total Protein 5.9 g/dL (6.3-8.2)
[2023-12-22 19:28] LABS: NT-Pro-B-Type Natriuretic Pept 91 pg/mL
[2023-12-22 19:51] LABS: Partial Thromboplastin Time 26.7 sec (22.0-30.0); Prothrombin Time 11.1 sec (10.0-12.5)
[2023-12-22] MEDS ORDERED: NALOXONE 0.4 MG/ML 1 ML VIAL IV PRN (20:05)
[2023-12-22] MEDS: SODIUM CHLORIDE 0.9% 1,000 ML IV SCH (21:25)
[2023-12-22] MEDS: PANTOPRAZOLE 40 MG/10 ML VIAL IV SCH (21:25)
[2023-12-23 06:54] LABS: Basophils % (A) 0 %; Eosinophils # (A) 0.1 k/uL (0-0.7); Eosinophils % (A) 1 %; HCT 25.9 % (34.0-46.0); Lymphocytes # (A) 1.6 k/uL (1.0-4.8); Lymphocytes % (A) 18 %; MCH 29.6 pg (25.0-35.0); MCV 89.7 fL (80.0-100.0); Mean Platelet Volume 8.9; Monocytes # (A) 0.4 k/uL (0-1.0); Monocytes % (A) 5 %; Neutrophils # (A) 6.4 k/uL (1.3-7.7); Neutrophils % (A) 73 %; Platelet Count 197 k/uL (150-450); RBC 2.89 m/uL (3.80-5.40); RDW 14.2 % (11.5-15.5); WBC 8.7 k/uL (3.8-10.6)
[2023-12-23 07:01] LABS: HGB 8.5 gm/dL (11.4-16.0)
[2023-12-23 07:15] LABS: African American GFR (CKD) 85 (>60 ml/min/1.73 sqM); Anion Gap 8 mmol/L; Blood Urea Nitrogen 63 mg/dL (7-17); Calcium 8.7 mg/dL (8.4-10.2); Carbon Dioxide 21 mmol/L (22-30); Chloride 108 mmol/L (98-107); Glucose 183 mg/dL (74-99); Non-African American GFR(CKD) 74 (>60 ml/min/1.73 sqM); Potassium 3.6 mmol/L (3.5-5.1); Sodium 137 mmol/L (137-145)
[2023-12-23] MEDS ORDERED: ACETAMINOPHEN TAB 325 MG TAB PO PRN (09:46)
[2023-12-23] MEDS ORDERED: IPRATROPIUM-ALBUTEROL 3 ML NEB INHALATION PRN (09:46)
[2023-12-23] MEDS ORDERED: ONDANSETRON 4 MG/2 ML VIAL IVP PRN (09:46)
[2023-12-23] MEDS ORDERED: NALOXONE 0.4 MG/ML 1 ML VIAL IVP PRN (09:46)
[2023-12-23] MEDS ORDERED: LORazepam 1 MG TAB PO PRN (09:47)
--- NOTE | 2023-12-23 12:18 | P.HPIM ---
History of Present Illness H&P Date: 12/23/23 History of present illness; patient 78-year-old lady with a past medical history significant for COPD who presented to the ER because of shortness of breath. Patient said that she was all right last night when were making dinner she noticed that she was getting short of breath. Shortness of breath was present at rest as on exertion. Patient also complaining of chest pressure that was central location, nonradiating. Only mild exertion made her out of breath. Patient was complaining of cough. There was no complaint of fever or chills. Denies any nausea or vomiting. Denies any abdominal pain. There is no complaint of diarrhea and dizziness. Because of the symptoms, patient presented to the ER Initial lab work done in the ER showed WBC 10.3, hemoglobin 10.1, platelet count 240, sodium 130s, potassium 4.1, BUN 17, creatinine 0.90, glucose 173, lactate 1.6, AST 18, ALT 13, troponin 0.012, stool for fecal occult positive Influenza A not detected Influenza B not detected RSV not detected COVID-19 not detected EKG done in the ER showed heart rate of 108, no ST segment elevation or d epression seen, no T-wave inversions seen. Chest x-ray done in the ER no acute cardiopulmonary process, COPD changes Patient admitted to internal medicine service REVIEW OF SYSTEMS: CONSTITUTIONAL: No fever, no malaise, no fatigue. HEENT: No recent visual problems or hearing problems. Denied any sore throat. CARDIOVASCULAR: As mentioned above PULMONARY: As mentioned above GASTROINTESTINAL: No diarrhea, no nausea, no vomiting, no abdominal pain. NEUROLOGICAL: No headaches, no weakness, no numbness. HEMATOLOGICAL: Denies any bleeding or petechiae. GENITOURINARY: Denies any burning micturition, frequency, or urgency. MUSCULOSKELETAL/RHEUMATOLOGICAL: Denies any joint pain, swelling, or any muscle pain. ENDOCRINE: Denies any polyuria or polydipsia. The rest of the 14-point review of systems is negative. PHYSICAL EXAMINATION: GENERAL: The patient is alert and oriented x3, not in any acute distress. Well developed, well nourished. HEENT: Pupils are round and equally reacting to light. EOMI. No scleral icterus. No conjunctival pallor. Normocephalic, atraumatic. No pharyngeal erythema. No thyromegaly. CARDIOVASCULAR: S1 and S2 present. No murmurs, rubs, or gallops. PULMONARY: Chest is clear to auscultation, no wheezing or crackles. ABDOMEN: Soft, nontender, nondistended, normoactive bowel sounds. No palpable organomegaly. MUSCULOSKELETAL: No joint swelling or deformity. EXTREMITIES: No cyanosis, clubbing, or pedal edema. NEUROLOGICAL: Gross neurological examination did not reveal any focal deficits. SKIN: No rashes. Assessment and plan Shortness of breath Chest pain GI bleed FOBT positive Hypertension hyperlipidemia History of CHF Monitor vital signs Monitor CBC Monitor CMP Continue telemetry monitoring Ordered troponin 2D echo Ordered IV Protonix Hold aspirin Resume home med Consult GI Consult cardiology Labs and medication were reviewed.. Continue same treatment. Continue with symptomatic treatment. Resume home medication. Monitor labs and vitals. DVT and GI prophylaxis. Further recommendations as per clinical course of the patient Dictation was produced using [employer] dictation software. please excuse any grammatical, word or spelling errors. Past Medical History Past Medical History: COPD, Diabetes Mellitus, Hyperlipidemia, Memory Impairment, Osteoarthritis (OA) Additional Past Medical History / Comment(s): chronic bronchitis, tripped & fell on 06-26-21 & fx. nose, sprained left wrist-wearing brace, ribs sore but she states no fx.'s, swollen ankles History of Any Multi-Drug Resistant Organisms: None Reported Past Surgical History: Section, Joint Replacement, Orthopedic Surgery Additional Past Surgical History / Comment(s): C/S x2, left knee replaced, left shoulder surg., carpal tunnel aurgery, left CTS Past Anesthesia/Blood Transfusion Reactions: No Reported Reaction Past Psychological History: Anxiety Smoking Status: Former smoker Past Alcohol Use History: Occasional Additional Past Alcohol Use History / Comment(s): quit smoking 3 yrs. ago, sm oked since early , <ppd Past Drug Use History: None Reported Medications and Allergies Home Medications Medication Instructions Recorded Confirmed Type Aspirin EC [Ecotrin Low Dose] 81 mg PO HS 06/26/21 12/22/23 History Bumetanide [BUMEX] 2 mg PO HS 06/26/21 12/22/23 History Donepezil [Aricept] 10 mg PO HS 06/26/21 12/22/23 History LORazepam [Ativan] 2 mg PO DAILY 06/26/21 12/22/23 History Latanoprost/Pf [Latanoprost 0.005% 1 drop BOTH EYES HS 06/26/21 12/22/23 History Eye Drop] Potassium Chloride ER [K-Dur 20] 20 meq PO BID 06/26/21 12/22/23 History Simvastatin [Zocor] 20 mg PO DAILY 06/26/21 12/22/23 History glipiZIDE XL [Glucotrol XL] 2.5 mg PO DAILY 06/26/21 12/22/23 History rOPINIRole HCL [Requip] 1 mg PO HS 06/26/21 12/22/23 History Calcium Carbonate [Calcium] 1,200 mg PO DAILY 12/22/23 12/22/23 History Cholecalciferol (Vitamin D3) 100 mcg PO DAILY 12/22/23 12/22/23 History [Vitamin D3 (50 Mcg = 2000 Iu)] LORazepam 2 mg PO HS PRN 12/22/23 12/22/23 History Lutein-Zeaxanthin 25-5mg 1 cap PO HS 12/22/23 12/22/23 History Magnesium Oxide [Magnesium] 500 mg PO HS 12/22/23 12/22/23 History Multivit-Min/Iron/Folic/Lutein 1 tab PO DAILY 12/22/23 12/22/23 History [Centrum Silver Women Tablet] Allergies Allergy/AdvReac Type Severity Reaction Status Date / Time grapefruit Allergy Rash/Hives Verified 12/22/23 20:25 orange Allergy Rash/Hives Verified 12/22/23 20:25 tomato Allergy Rash/Hives Verified 12/22/23 20:25 amoxicillin [From Augmentin] AdvReac Abdominal Verified 12/22/23 20:25 Pain clavulanic acid AdvReac Abdominal Verified 12/22/23 20:25 [From Augmentin] Pain Physical Exam Vitals: Vital Signs Temp Pulse Resp BP Pulse Ox 12/23/23 09:21 98 16 136/59 97 12/23/23 07:43 98 16 127/62 97 12/23/23 06:13 98 18 129/55 98 12/23/23 04:02 101 H 19 124/49 98 12/23/23 00:00 101 H 19 134/60 97 12/22/23 19:44 111 H 18 140/61 97 12/22/23 17:39 97.4 F L 109 H 18 129/56 99 Intake and Output 12/22/23 12/23/23 12/23/23 22:59 06:59 14:59 Other: Weight 123.377 kg 123.377 kg Results CBC & Chem 7: 12/23/23 06:36 12/23/23 06:36 Labs: Abnormal Lab Results - Last 24 Hours (Table) 12/22/23 12/22/23 12/22/23 Range/Units 18:00 18:44 18:44 RBC 3.50 L (3.80-5.40) m/uL Hgb 10.1 L (11.4-16.0) gm/dL Hct 31.7 L (34.0-46.0) % Neutrophils # 8.1 H (1.3-7.7) k/uL Sodium 136 L (137-145) mmol/L Chloride (98-107) mmol/L Carbon Dioxide (22-30) mmol/L BUN 76 H (7-17) mg/dL Glucose 173 H (74-99) mg/dL Total Protein 5.9 L (6.3-8.2) g/dL Stool Occult Blood Positive H (Negative) 12/23/23 12/23/23 Range/Units 06:36 06:36 RBC 2.89 L (3.80-5.40) m/uL Hgb 8.5 L D (11.4-16.0) gm/dL Hct 25.9 L (34.0-46.0) % Neutrophils # (1.3-7.7) k/uL Sodium (137-145) mmol/L Chloride 108 H (98-107) mmol/L Carbon Dioxide 21 L (22-30) mmol/L BUN 63 H (7-17) mg/dL Glucose 183 H (74-99) mg/dL Total Protein (6.3-8.2) g/dL Stool Occult Blood (Negative) Thrombosis Risk Factor Assmnt - Choose All That Apply Any of the Below Risk Factors Present?: Yes Each Factor Represents 1 point: Abnormal pulmonary function (COPD) Other Risk Factors: No Other congenital or acquired thrombophilia - If yes, enter type in comment: No Thrombosis Risk Factor Assessment Total Risk Factor Score: 1 Thrombosis Risk Factor Assessment Level: Low Risk
--- NOTE | 2023-12-23 13:47 | P.CONS ---
History of Present Illness - Reason for Consult Consult date: 12/23/23 GI hemorrhage Requesting physician: Alexey Moore - Chief Complaint Shortness of breath - History of Present Illness This a pleasant 78-year-old female who presented to the emergency department with complaints of shortness of breath. She has a past medical history including COPD, diabetes mellitus, hyperlipidemia, memory impairment, osteoarthritis, and obesity. Apparently while she was in the emergency room they noted that she had some anemia compared to previous labs. They did a stool for occult blood which was positive and had noticed a drop in her hemoglobin today. Gastroenterology was consulted for GI bleed. Patient states that she had some black stool for the last 2 days duration. No previous history of GI bleed. Denies any anticoagulation use. Does take Advil regularly about 2-3 times a week as well as a low-dose baby aspirin. Denies any abdominal pain, nausea or vomiting. States she has had a colonoscopy in the past however it has been many years. No history of peptic ulcer disease no previous EGD. Review of Systems CARDIOPULMONARY: No chest pain. Positive shortness of breath. Gastrointestinal: No abdominal pain. No nausea or vomiting. No hematemesis, coffee-ground emesis. No rectal bleeding, or melena. GENITOURINARY: No dysuria or hematuria. MUSCULOSKELETAL: Reports normal range of motion. SKIN: No rashes. No jaundice. ENDOCRINE: No chills, fevers. No excessive weight gain or loss. No polydipsia or polyuria. PSYCHIATRIC: Unremarkable. NEUROLOGY: No change in mental status. Denies dizziness, headache. ENT: Vision unremarkable. CONSTITUTIONAL: No recent weight loss. No fever, chills, night sweats. Past Medical History Past Medical History: COPD, Diabetes Mellitus, Hyperlipidemia, Memory Impairment, Osteoarthritis (OA) Additional Past Medical History / Comment(s): chronic bronchitis, tripped & fell on 06-26-21 & fx. nose, sprained left wrist-wearing brace, ribs sore but she states no fx.'s, swollen ankles History of Any Multi-Drug Resistant Organisms: None Reported Past Surgical History: Section, Joint Replacement, Orthopedic Surgery Additional Past Surgical History / Comment(s): C/S x2, left knee replaced, left shoulder surg., carpal tunnel aurgery, left CTS Past Anesthesia/Blood Transfusion Reactions: No Reported Reaction Past Psychological History: Anxiety Smoking Status: Former smoker Past Alcohol Use History: Occasional Additional Past Alcohol Use History / Comment(s): quit smoking 3 yrs. ago, smo ked since early 20, <ppd Past Drug Use History: None Reported Medications and Allergies Home Medications Medication Instructions Recorded Confirmed Type Aspirin EC [Ecotrin Low Dose] 81 mg PO HS 06/26/21 12/22/23 History Bumetanide [BUMEX] 2 mg PO HS 06/26/21 12/22/23 History Donepezil [Aricept] 10 mg PO HS 06/26/21 12/22/23 History LORazepam [Ativan] 2 mg PO DAILY 06/26/21 12/22/23 History Latanoprost/Pf [Latanoprost 0.005% 1 drop BOTH EYES HS 06/26/21 12/22/23 History Eye Drop] Potassium Chloride ER [K-Dur 20] 20 meq PO BID 06/26/21 12/22/23 History Simvastatin [Zocor] 20 mg PO DAILY 06/26/21 12/22/23 History glipiZIDE XL [Glucotrol XL] 2.5 mg PO DAILY 06/26/21 12/22/23 History rOPINIRole HCL [Requip] 1 mg PO HS 06/26/21 12/22/23 History Calcium Carbonate [Calcium] 1,200 mg PO DAILY 12/22/23 12/22/23 History Cholecalciferol (Vitamin D3) 100 mcg PO DAILY 12/22/23 12/22/23 History [Vitamin D3 (50 Mcg = 2000 Iu)] LORazepam 2 mg PO HS PRN 12/22/23 12/22/23 History Lutein-Zeaxanthin 25-5mg 1 cap PO HS 12/22/23 12/22/23 History Magnesium Oxide [Magnesium] 500 mg PO HS 12/22/23 12/22/23 History Multivit-Min/Iron/Folic/Lutein 1 tab PO DAILY 12/22/23 12/22/23 History [Centrum Silver Women Tablet] Allergies Allergy/AdvReac Type Severity Reaction Status Date / Time grapefruit Allergy Rash/Hives Verified 12/22/23 20:25 orange Allergy Rash/Hives Verified 12/22/23 20:25 tomato Allergy Rash/Hives Verified 12/22/23 20:25 amoxicillin [From Augmentin] AdvReac Abdominal Verified 12/22/23 20:25 Pain clavulanic acid AdvReac Abdominal Verified 12/22/23 20:25 [From Augmentin] Pain Physical Exam Vitals: Vital Signs Temp Pulse Resp BP Pulse Ox 12/23/23 09:21 98 16 136/59 97 12/23/23 07:43 98 16 127/62 97 12/23/23 06:13 98 18 129/55 98 12/23/23 04:02 101 H 19 124/49 98 12/23/23 00:00 101 H 19 134/60 97 12/22/23 19:44 111 H 18 140/61 97 12/22/23 17:39 97.4 F L 109 H 18 129/56 99 Intake and Output 12/22/23 12/23/23 12/23/23 22:59 06:59 14:59 Other: Weight 123.377 kg 123.377 kg General appearance: The patient is alert, oriented, appears in no acute distress. HET: Head is normocephalic and atraumatic. Conjunctiva pink. Sclera anicteric. Neck: Supple without lymphadenopathy. Trachea midline. Heart: Regular. Lungs: Equal expansion, normal respiratory effort. Abdomen: Soft, nontender, nondistended. Skin: No rashes. No jaundice. Extremities: Normal skin color and turgor. No pedal edema. Neurological: No focal deficits. Alert and oriented x3. Results CBC & Chem 7: 12/23/23 06:36 12/23/23 06:36 Labs: Abnormal Lab Results - Last 24 Hours (Table) 12/22/23 12/22/23 12/22/23 Range/Units 18:00 18:44 18:44 RBC 3.50 L (3.80-5.40) m/uL Hgb 10.1 L (11.4-16.0) gm/dL Hct 31.7 L (34.0-46.0) % Neutrophils # 8.1 H (1.3-7.7) k/uL Sodium 136 L (137-145) mmol/L Chloride (98-107) mmol/L Carbon Dioxide (22-30) mmol/L BUN 76 H (7-17) mg/dL Glucose 173 H (74-99) mg/dL Total Protein 5.9 L (6.3-8.2) g/dL Stool Occult Blood Positive H (Negative) 12/23/23 12/23/23 Range/Units 06:36 06:36 RBC 2.89 L (3.80-5.40) m/uL Hgb 8.5 L D (11.4-16.0) gm/dL Hct 25.9 L (34.0-46.0) % Neutrophils # (1.3-7.7) k/uL Sodium (137-145) mmol/L Chloride 108 H (98-107) mmol/L Carbon Dioxide 21 L (22-30) mmol/L BUN 63 H (7-17) mg/dL Glucose 183 H (74-99) mg/dL Total Protein (6.3-8.2) g/dL Stool Occult Blood (Negative) Chest x-ray: report reviewed (No acute cardiopulmonary process. COPD changes) Assessment and Plan (1) Melena Narrative/Plan: 78-year-old female presenting with shortness of breath with history of COPD found to be anemic and had a rectal with positive occult stool. No anticoagulation however does have a history of NSAID use and uses Advil 2-3 time s a week as well as being on a low-dose baby aspirin daily. No prior history of peptic ulcer disease or GI bleed. Remote colonoscopy. Need to consider possible upper GI bleed especially in light of elevated BUN. Will plan for upper endoscopy tomorrow to evaluate for possible upper GI bleed. Current Visit: Yes Status: Acute Code(s): K92.1 - MELENA SNOMED Code(s): 7488118 (2) Anemia Current Visit: Yes Status: Acute Code(s): D64.9 - ANEMIA, UNSPECIFIED SNOMED Code(s): 362098425 (3) Shortness of breath Current Visit: Yes Status: Acute Code(s): R06.02 - SHORTNESS OF BREATH SNOMED Code(s): 813362978 (4) COPD (chronic obstructive pulmonary disease) Current Visit: Yes Status: Acute Code(s): J44.9 - CHRONIC OBSTRUCTIVE PULMONARY DISEASE, UNSPECIFIED SNOMED Code(s): 81181310 Plan: 1. Continue symptomatic and supportive care 2. Clear liquid diet, n.p.o. after midnight 3. Daily CBC, transfuse for hemoglobin less than 7 4. Protonix 40 mg daily for GI prophylaxis 5. Avoid NSAIDs 6. Will plan for upper endoscopy tomorrow Thank you for this consultation, we will continue to follow. Dr. Maritza Lazaro I agree with the dictator's note, documented as a scribe by Renee Armendariz.
[2023-12-23 16:39] LABS: Glucose,Whole Blood 190 mg/dL (70-110)
--- NOTE | 2023-12-23 17:42 | CA ---
Transthoracic Echo Report Name: Jennifer Goodwin Age: 78 Gender: F : 1945 Exam Date: 12/23/2023 14:00 Exam Location: [facility] Ht (in): 68 Wt (lb): 272 Ordering Physician: Yamil Norman MD Attending/Referring Phys: Freelance Data Entry Nany Medellin RDCS Procedure CPT: Indications: Chest Pain Cardiac Hx: Technical Quality: Fair Contrast 1: Total Dose (mL): Contrast 2: Total Dose (mL): MEASUREMENTS (Male / Female) Normal Values 2D ECHO LV Diastolic Diameter PLAX 4.4 cm 4.2 - 5.9 / 3.9 - 5.3 cm LV Systolic Diameter PLAX 2.5 cm IVS Diastolic Thickness 1.1 cm 0.6 - 1.0 / 0.6 - 0.9 cm LVPW Diastolic Thickness 1.2 cm 0.6 - 1.0 / 0.6 - 0.9 cm LV Relative Wall Thickness 0.5 RV Internal Dim ED PLAX 1.5 cm LV Diastolic Volume MOD 4C 49.9 cm??? LV Systolic Volume MOD 4C 14.5 cm??? LV Ejection Fraction MOD 4C 70.9 % LV Cardiac Index MOD 4C 1517.9 cm???/min???m??? LV Diastolic Length 4C 7.5 cm LV Systolic Length 4C 6.7 cm LA Volume 56.1 cm??? 18 - 58 / 22 - 52 cm??? LA Volume Index 22.5 cm???/m??? 16 - 28 cm???/m??? M-MODE Aortic Root Diameter MM 3.0 cm LA Systolic Diameter MM 2.9 cm LA Ao Ratio MM 1.0 AV Cusp Separation MM 1.9 cm DOPPLER AV Peak Velocity 178.7 cm/s AV Peak Gradient 12.8 mmHg AV Mean Velocity 127.4 cm/s AV Mean Gradient 7.3 mmHg AV Velocity Time Integral 27.3 cm LVOT Peak Velocity 170.0 cm/s LVOT Peak Gradient 11.6 mmHg LVOT Velocity Time Integral 26.4 cm MV Area PHT 5.4 cm??? Mitral E Point Velocity 90.5 cm/s Mitral A Point Velocity 118.8 cm/s Mitral E to A Ratio 0.8 MV Deceleration Time 141.0 ms TR Peak Velocity 261.9 cm/s TR Peak Gradient 27.4 mmHg FINDINGS Left Ventricle Left ventricular ejection fraction is estimated at 60-65 %. Mildly increased septal wall thickness. Mildly increased posterior wall thickness. Hyperdynamic left ventricular systolic function. Mid cavity gradient due to hyperdynamic heart. Right Ventricle Normal right ventricular size and function. Right ventricular systolic pressure within normal limits. Right Atrium Mild right atrial dilatation. Left Atrium Mildly increased left atrial volume. Mitral Valve Structurally normal mitral valve. No mitral stenosis. Aortic Valve Aortic valve not well visualized. No aortic valve stenosis or regurgitation. Tricuspid Valve Structurally normal tricuspid valve.No tricuspid stenosis. Pulmonic Valve No pulmonic stenosis.pulmonic valve not well visualized. Pericardium Echo free space anterior to the right ventricle likely represents a fat pad. Aorta Normal size aortic root and proximal ascending aorta. CONCLUSIONS Technically difficult study. Hyperdynamic left ventricle Very limited Doppler study Previewed by: Dr. Rc Moran MD (Electronically Signed) Final Date: 23 December 2023 17:41
[2023-12-23] MEDS: POTASSIUM CHLORIDE ER 20 MEQ TAB.ER PO SCH (20:07)
[2023-12-23] MEDS: LATANOPROST 0.005% OPHTH DROPS 2.5 ML BTL BOTH EYES SCH (20:07)
[2023-12-23] MEDS: MAGNESIUM OXIDE 400 MG TAB PO SCH (20:07)
[2023-12-23] MEDS: DONEPEZIL 10 MG TAB PO SCH (20:07)
[2023-12-23] MEDS: BUMETANIDE 1 MG TAB PO SCH (20:08)
[2023-12-23 20:18] LABS: Glucose,Whole Blood 175 mg/dL (70-110)
[2023-12-23] MEDS: SYMBICORT 80-4.5 MCG INHALER INHALATION SCH (20:56)
[2023-12-24 06:17] LABS: Glucose,Whole Blood 150 mg/dL (70-110)
[2023-12-24 07:44] LABS: HCT 21.6 % (34.0-46.0); Hypochromasia Slight; MCH 29.2 pg (25.0-35.0); MCHC 31.9 g/dL (31.0-37.0); MCV 91.4 fL (80.0-100.0); Platelet Count 182 k/uL (150-450); RBC 2.36 m/uL (3.80-5.40); RDW 14.1 % (11.5-15.5); WBC 6.6 k/uL (3.8-10.6)
[2023-12-24 07:46] LABS: HGB 6.9 gm/dL (11.4-16.0)
[2023-12-24] MEDS: CHOLECALCIFEROL 25 MCG (1000 IU) TABLET PO SCH (08:03)
[2023-12-24] MEDS: MULTIVITAMINS, THERA 1 EACH TAB PO SCH (08:03)
[2023-12-24] MEDS: CALCIUM CARBONATE 500 MG CHEWABLE PO SCH (08:03)
[2023-12-24] MEDS: LORazepam 1 MG TAB PO SCH (08:03)
[2023-12-24] MEDS: ATORVASTATIN 10 MG TAB PO SCH (08:03)
[2023-12-24 09:52] LABS: African American GFR (CKD) >90 (>60 ml/min/1.73 sqM); Anion Gap 3 mmol/L; Blood Urea Nitrogen 19 mg/dL (7-17); Calcium 8.4 mg/dL (8.4-10.2); Carbon Dioxide 24 mmol/L (22-30); Chloride 111 mmol/L (98-107); Glucose 137 mg/dL (74-99); Non-African American GFR(CKD) 84 (>60 ml/min/1.73 sqM); Potassium 4.2 mmol/L (3.5-5.1); Sodium 138 mmol/L (137-145)
[2023-12-24 11:20] LABS: Glucose,Whole Blood 146 mg/dL (70-110)
[2023-12-24] MEDS ORDERED: PROPOFOL 10 MG/ML 20 ML VIAL IV ONE (12:51)
[2023-12-24] MEDS: IV FLUID CONTINUATION 1,000 ML IV ONE ×2 (12:53→13:06)
--- NOTE | 2023-12-24 13:04 | P.PN ---
Subjective Progress Note Date: 12/24/23 patient 78-year-old lady with a past medical history significant for COPD who presented to the ER because of shortness of breath. Patient said that she was all right last night when were making dinner she noticed that she was getting short of breath. Shortness of breath was present at rest as on exertion. Patient also complaining of chest pressure that was central location, nonradiating. Only mild exertion made her out of breath. Patient was complaining of cough. There was no complaint of fever or chills. Denies any nausea or vomiting. Denies any abdominal pain. There is no complaint of diar liz and dizziness. Because of the symptoms, patient presented to the ER Initial lab work done in the ER showed WBC 10.3, hemoglobin 10.1, platelet count 240, sodium 130s, potassium 4.1, BUN 17, creatinine 0.90, glucose 173, lactate 1.6, AST 18, ALT 13, troponin 0.012, stool for fecal occult positive Influenza A not detected Influenza B not detected RSV not detected COVID-19 not detected EKG done in the ER showed heart rate of 108, no ST segment elevation or depression seen, no T-wave inversions seen. Chest x-ray done in the ER no acute cardiopulmonary process, COPD changes Patient admitted to internal medicine service 12/23. Patient seen and examined. Blood work done this morning showed hemoglobin 6.9, will order 1 unit of packed red blood cell. 2D echo done showed hyperdynamic left ventricle, no valvular abnormality REVIEW OF SYSTEMS: CONSTITUTIONAL: No fever, no malaise,. CARDIOVASCULAR: No chest pain, no palpitations, no syncope. PULMONARY: No shortness of breath, no cough, GASTROINTESTINAL: No diarrhea, no nausea, no vomiting, no abdominal pain. NEUROLOGICAL: No headaches, no weakness, PHYSICAL EXAMINATION: GENERAL: The patient is alert and oriented x3, not in any acute distress. Well developed, well nourished. HEENT: Pupils are round and equally reacting to light. EOMI. No scleral icterus. No conjunctival pallor. Normocephalic, atraumatic. No pharyngeal erythema. No thyromegaly. CARDIOVASCULAR: S1 and S2 present. No murmurs, rubs, or gallops. PULMONARY: Chest is clear to auscultation, no wheezing or crackles. ABDOMEN: Soft, nontender, nondistended, normoactive bowel sounds. No palpable organomegaly. MUSCULOSKELETAL: No joint swelling or deformity. EXTREMITIES: No cyanosis, clubbing, or pedal edema. NEUROLOGICAL: Gross neurological examination did not reveal any focal deficits. SKIN: No rashes. Assessment and plan Shortness of breath Chest pain GI bleed Melena Anemia FOBT positive Hypertension hyperlipidemia History of CHF Monitor vital signs Monitor CBC Monitor CMP Continue telemetry monitoring Ordered 1 unit of packed red blood cell Continue IV Protonix Hold aspirin Resume home med GI following, planning EGD today. Cardiology following Labs and medication were reviewed.. Continue same treatment. Continue with symptomatic treatment. Resume home medication. Monitor labs and vitals. DVT and GI prophylaxis. Further recommendations as per clinical course of the patient Dictation was produced using [employer] dictation software. please excuse any grammatical, word or spelling errors. Objective - Vital Signs Vital signs: Vital Signs Temp 98.2 F 12/24/23 10:02 Pulse 93 12/24/23 10:02 Resp 18 12/24/23 10:02 BP 133/84 12/24/23 10:02 Pulse Ox 97 12/24/23 10:02 FiO2 Intake & Output 12/23/23 12/24/23 12/24/23 18:59 06:59 18:59 Intake Total 1140 0 Output Total 600 Balance 540 0 Weight 123.377 kg 123.5 kg Intake: Oral 1140 Blood Product 0 Unit 0 Output: Urine 600 Other: Voiding Method Toilet Toilet # Voids 1 # Bowel Movements 1 - Labs CBC & Chem 7: 12/24/23 07:01 12/24/23 09:11 Labs: Abnormal Lab Results - Last 24 Hours (Table) 12/23/23 12/23/23 12/24/23 Range/Units 16:38 20:16 06:15 RBC (3.80-5.40) m/uL Hgb (11.4-16.0) gm/dL Hct (34.0-46.0) % Chloride (98-107) mmol/L BUN (7-17) mg/dL Glucose (74-99) mg/dL POC Glucose (mg/dL) 190 H 175 H 150 H (70-110) mg/dL Crossmatch 10/09/24 10/09/24 10/09/24 Range/Units 07:01 08:15 09:11 RBC 2.36 L (3.80-5.40) m/uL Hgb 6.9 L* D (11.4-16.0) gm/dL Hct 21.6 L (34.0-46.0) % Chloride 111 H (98-107) mmol/L BUN 19 H (7-17) mg/dL Glucose 137 H (74-99) mg/dL POC Glucose (mg/dL) (70-110) mg/dL Crossmatch See Detail
--- NOTE | 2023-12-24 13:07 | P.PCN ---
Date of Procedure: 12/24/23 Procedure(s) Performed: BRIEF HISTORY: Patient is a 78-year-old, pleasant, white female admitted to hospital with intermittent episodes for the last 2 to 3 days duration. Initial hemoglobin was 10 and dropped to 6.5 g/dL requiring unit of PRBC transfusion. She is scheduled for an upper endoscopy to evaluate further. Lately has been taking NSAIDs with biopsy. PROCEDURE PERFORMED: Esophagogastroduodenoscopy with biopsy. PREOPERATIVE DIAGNOSIS: Black tarry stools and severe anemia. IV sedation per anesthesia. PROCEDURE: After informed consent was obtained, the patient was brought into the endoscopy unit. IV sedation was administered by Anesthesia under continuous monitoring. Initially the Olympus GIF-140 video endoscope was inserted into the mouth. Esophagus intubated without any difficulty. It was gradually advanced into the stomach and duodenum and carefully examined. The bulb had mild duodenitis and the second part of the duodenum appeared normal. The scope at this time was withdrawn to the stomach, adequately insufflated with air, and upon careful examination, mucosa of the antrum, had 2 superficial ulcerations measuring 5 mm and 1 cm in size with no active bleeding. Biopsies were done from this area. Scattered erosions noted. Rest of the body, cardia and the fundus appeared normal. The scope was then withdrawn into the esophagus. The GE junction was located at 39 cm from the incisors. The esophagus appeared normal. There were no erosions or ulcerations seen and the patient tolerated the procedure well. IMPRESSION: 1. 1 cm and 5 mm antral ulcers with no active bleeding. 2. Antral erosive gastritis and mild duodenitis. RECOMMENDATIONS: The findings of this examination were discussed with the patient as well as her family. She will be on Protonix 40 mg twice daily. Avoid NSAIDs. Monitor CBC closely.. Advance diet as tolerated.
[2023-12-24] MEDS: FUROSEMIDE 10 MG/ML 2 ML VIAL IV ONE (15:11)
--- NOTE | 2023-12-24 15:47 | P.CRDCN ---
History of Present Illness Consult date: 12/24/23 History of present illness: HISTORY OF PRESENTING ILLNESS 78-year-old female with past medical history of COPD, presents to the ER because of shortness of breath and substernal chest heaviness symptoms. On admission to ER she was noticed to be anemic with active drop in hemoglobin from 10.1 on admission to 6.9. She was also reporting to have black tarry stools. Her troponins were negative, her ECG showed sinus tachycardia with nonspecific ST changes. Chest x-ray did not show any acute cardiopulmonary process or any consolidation or congestion. REVIEW OF SYSTEMS 14 point review of system is negative except what is mentioned above in HPI. PHYSICAL EXAMINATION Vital signs reviewed. Head: Normocephalic. Eyes: Sclerae nonicteric. Neck: Brisk carotid upstroke, no jugular venous distention. Lungs: Clear to auscultation. Heart: Regular rate and rhythm, S1-S2, no S3, no murmur or rub. Abdomen: Soft nontender, positive bowel sounds. Extremities: No edema, intact distal pulses. Neuro: Alert, oritented, no focal deficits. Detailed neuro exam was not performed. ASSESSMENT Symptomatic anemia with substernal chest pressure and shortness of breath Acute anemia because of GI bleeding Lower extremity edema Her echocardiogram showed an EF of 55% with no significant valvular structure abnormalities. PLAN Discontinue aspirin Patient is on Bumex 2 mg for lower extremity edema. Her NT-proBNP is negative and clinically she does not have any signs of congestive heart failure. I would not recommend her to be on any diuretics for lower extremity edema alone. Discontinue Bumex. Recommend compression stockings. Further workup with endoscopy and colonoscopy completed. At this time patient is stable from cardiovascular standpoint. Her chest pain is improved with blood transfusion. Her chest pain and shortness of breath were symptoms of anemia. I recommend outpatient follow-up with cardiology. At this time cardiology team will sign off. Jerry Dias MD, FACC, RPVI Thank you for allowing [facility] to participate in this patient's care. Feel free to reach out in case of any followup questions. Past Medical History Past Medical History: COPD, Diabetes Mellitus, Hyperlipidemia, Memory Impairment, Osteoarthritis (OA) Additional Past Medical History / Comment(s): chronic bronchitis, tripped & fell on 06-26-21 & fx. nose, sprained left wrist-wearing brace, ribs sore but she states no fx.'s, swollen ankles History of Any Multi-Drug Resistant Organisms: None Reported Past Surgical History: Section, Joint Replacement, Orthopedic Surgery Additional Past Surgical History / Comment(s): C/S x2, left knee replaced, left shoulder surg., carpal tunnel aurgery, left CTS Past Anesthesia/Blood Transfusion Reactions: No Reported Reaction Past Psychological History: Anxiety Smoking Status: Former smoker Past Alcohol Use History: Occasional Additional Past Alcohol Use History / Comment(s): quit smoking 3 yrs. ago, smoked since early 20, <ppd Past Drug Use History: None Reported Medications and Allergies Home Medications Medication Instructions Recorded Confirmed Type Aspirin EC [Ecotrin Low Dose] 81 mg PO HS 06/26/21 12/22/23 History Bumetanide [BUMEX] 2 mg PO HS 06/26/21 12/22/23 History Donepezil [Aricept] 10 mg PO HS 06/26/21 12/22/23 History LORazepam [Ativan] 2 mg PO DAILY 06/26/21 12/22/23 History Latanoprost/Pf [Latanoprost 0.005% 1 drop BOTH EYES HS 06/26/21 12/22/23 History Eye Drop] Potassium Chloride ER [K-Dur 20] 20 meq PO BID 06/26/21 12/22/23 History Simvastatin [Zocor] 20 mg PO DAILY 06/26/21 12/22/23 History glipiZIDE XL [Glucotrol XL] 2.5 mg PO DAILY 06/26/21 12/22/23 History rOPINIRole HCL [Requip] 1 mg PO HS 06/26/21 12/22/23 History Calcium Carbonate [Calcium] 1,200 mg PO DAILY 12/22/23 12/22/23 History Cholecalciferol (Vitamin D3) 100 mcg PO DAILY 12/22/23 12/22/23 History [Vitamin D3 (50 Mcg = 2000 Iu)] LORazepam 2 mg PO HS PRN 12/22/23 12/22/23 History Lutein-Zeaxanthin 25-5mg 1 cap PO HS 12/22/23 12/22/23 History Magnesium Oxide [Magnesium] 500 mg PO HS 12/22/23 12/22/23 History Multivit-Min/Iron/Folic/Lutein 1 tab PO DAILY 12/22/23 12/22/23 History [Centrum Silver Women Tablet] Allergies Allergy/AdvReac Type Severity Reaction Status Date / Time grapefruit Allergy Rash/Hives Verified 12/22/23 20:25 orange Allergy Rash/Hives Verified 12/22/23 20:25 tomato Allergy Rash/Hives Verified 12/22/23 20:25 amoxicillin [From Augmentin] AdvReac Abdominal Verified 12/22/23 20:25 Pain clavulanic acid AdvReac Abdominal Verified 12/22/23 20:25 [From Augmentin] Pain Physical Exam Vitals: Vital Signs Temp Pulse Pulse Resp BP BP Pulse Ox 12/24/23 14:27 98.3 F 91 16 115/71 98 12/24/23 13:00 93 15 115/78 97 12/24/23 12:16 98.1 F 86 18 103/69 95 12/24/23 11:56 98.0 F 90 18 101/70 97 12/24/23 11:33 98.3 F 94 18 136/89 98 12/24/23 10:02 98.2 F 93 18 133/84 97 12/24/23 09:42 98.1 F 97 18 130/61 97 12/24/23 08:00 98.2 F 93 18 137/71 96 12/24/23 04:00 98 F 98 15 118/54 97 12/23/23 23:41 105 H 16 132/62 96 12/23/23 20:13 97.7 F 108 H 17 134/74 98 Intake and Output 12/24/23 12/24/23 12/24/23 06:59 14:59 22:59 Intake Total 540 720 Balance 540 720 Intake: IV 100 Oral 540 Blood Product 620 As-1 Unit 310 [id number] As-1 Unit 310 [id number] Other: Voiding Method Toilet Toilet # Voids 2 # Bowel Movements 1 Weight 123.5 kg Results 12/24/23 07:01 12/24/23 09:11 Cardiac Enzymes 12/23/23 Range/Units 15:55 Troponin I <0.012 (0.000-0.034) ng/mL CBC 12/24/23 Range/Units 07:01 WBC 6.6 (3.8-10.6) k/uL RBC 2.36 L (3.80-5.40) m/uL Hgb 6.9 L* D (11.4-16.0) gm/dL Hct 21.6 L (34.0-46.0) % Plt Count 182 (150-450) k/uL Comprehensive Metabolic Panel 12/24/23 Range/Units 09:11 Sodium 138 (137-145) mmol/L Potassium 4.2 (3.5-5.1) mmol/L Chloride 111 H (98-107) mmol/L Carbon Dioxide 24 (22-30) mmol/L BUN 19 H (7-17) mg/dL Creatinine 0.69 (0.52-1.04) mg/dL Glucose 137 H (74-99) mg/dL Calcium 8.4 (8.4-10.2) mg/dL Current Medications Generic Name Dose Route Start Last Admin Trade Name Freq PRN Reason Stop Dose Admin Acetaminophen 650 mg 12/23/23 09:46 Acetaminophen Tab 325 Mg Tab PO Q4HR PRN Mild Pain or Fever > 100.5 Albuterol/Ipratropium 3 ml 12/23/23 09:46 Ipratropium-Albuterol 3 Ml Neb INHALATION RT-Q2H PRN Shortness Of Breath Or Wheezing Atorvastatin Calcium 10 mg 12/24/23 09:00 12/24/23 08:03 Atorvastatin 10 Mg Tab PO Not Given DAILY FABI Budesonide/Formoterol Fumarate 2 puff 12/23/23 20:00 12/24/23 08:15 Symbicort 80-4.5 Mcg Inhaler INHALATION Not Given RT-BID FABI Calcium Carbonate/Glycine 1,000 mg 12/24/23 09:00 12/24/23 08:03 Calcium Carbonate 500 Mg Chewable PO Not Given DAILY FABI Cholecalciferol 100 mcg 12/24/23 09:00 12/24/23 08:03 Cholecalciferol 25 Mcg (1000 Iu) Tablet PO Not Given DAILY FABI Donepezil HCl 10 mg 12/23/23 21:00 12/23/23 20:07 Donepezil 10 Mg Tab PO 10 mg HS FABI Administration Latanoprost 1 drops 12/23/23 21:00 12/23/23 20:07 Latanoprost 0.005% Ophth Drops 2.5 Ml Btl BOTH EYES Not Given HS FABI Lorazepam 2 mg 12/24/23 09:00 12/24/23 08:03 Lorazepam 1 Mg Tab PO Not Given DAILY FABI Lorazepam 2 mg 12/23/23 09:47 Lorazepam 1 Mg Tab PO HS PRN Anxiety Magnesium Oxide 400 mg 12/23/23 21:00 12/23/23 20:07 Magnesium Oxide 400 Mg Tab PO 400 mg HS FABI Administration Multivitamins 1 each 12/24/23 09:00 12/24/23 08:03 Multivitamins, Thera 1 Each Tab PO Not Given DAILY FABI Naloxone HCl 0.2 mg 12/22/23 20:05 Naloxone 0.4 Mg/Ml 1 Ml Vial IV Q2M PRN Opioid Reversal Ondansetron HCl 4 mg 12/23/23 09:46 Ondansetron 4 Mg/2 Ml Vial IVP Q6HR PRN Nausea And Vomiting Pantoprazole Sodium 40 mg 12/22/23 20:15 12/24/23 10:00 Pantoprazole 40 Mg/10 Ml Vial IV 40 mg DAILY FABI Administration Potassium Chloride 20 meq 12/23/23 21:00 12/24/23 08:03 Potassium Chloride Er 20 Meq Tab.Er PO Not Given BID FABI Ropinirole HCl 1 mg 12/23/23 21:00 12/23/23 20:07 Ropinirole Hcl 1 Mg Tab PO 1 mg HS FABI Administration Intake and Output 12/24/23 12/24/23 12/24/23 06:59 14:59 22:59 Intake Total 540 720 Balance 540 720 Intake: IV 100 Oral 540 Blood Product 620 Rc As-1 Unit 310 [id number] Rc As-1 Unit 310 [id number] Other: Voiding Method Toilet Toilet # Voids 2 # Bowel Movements 1 Weight 123.5 kg 12/24/23 07:01 12/24/23 09:11
[2023-12-24 16:23] LABS: Glucose,Whole Blood 166 mg/dL (70-110)
[2023-12-24 19:59] LABS: Glucose,Whole Blood 143 mg/dL (70-110)
[2023-12-25 06:16] LABS: Glucose,Whole Blood 150 mg/dL (70-110)
[2023-12-25 06:58] LABS: Basophils % (A) 0 %; Eosinophils # (A) 0.2 k/uL (0-0.7); Eosinophils % (A) 4 %; HCT 26.5 % (34.0-46.0); Lymphocytes # (A) 1.2 k/uL (1.0-4.8); Lymphocytes % (A) 22 %; MCH 29.5 pg (25.0-35.0); MCHC 32.5 g/dL (31.0-37.0); MCV 90.8 fL (80.0-100.0); Mean Platelet Volume 8.2; Monocytes # (A) 0.3 k/uL (0-1.0); Monocytes % (A) 6 %; Neutrophils # (A) 3.5 k/uL (1.3-7.7); Neutrophils % (A) 65 %; Platelet Count 179 k/uL (150-450); RBC 2.92 m/uL (3.80-5.40); RDW 14.8 % (11.5-15.5); WBC 5.4 k/uL (3.8-10.6)
[2023-12-25 07:02] LABS: HGB 8.6 gm/dL (11.4-16.0)
[2023-12-25 07:45] LABS: ALT 14 U/L (4-34); AST 23 U/L (14-36); African American GFR (CKD) 88 (>60 ml/min/1.73 sqM); Albumin 3.1 g/dL (3.5-5.0); Alkaline Phosphatase 67 U/L (38-126); Anion Gap 4 mmol/L; Blood Urea Nitrogen 17 mg/dL (7-17); Calcium 8.5 mg/dL (8.4-10.2); Carbon Dioxide 26 mmol/L (22-30); Chloride 109 mmol/L (98-107); Glucose 134 mg/dL (74-99); Non-African American GFR(CKD) 76 (>60 ml/min/1.73 sqM); Potassium 4.1 mmol/L (3.5-5.1); Sodium 139 mmol/L (137-145); Total Bilirubin 0.5 mg/dL (0.2-1.3); Total Protein 5.4 g/dL (6.3-8.2)
[2023-12-25] MEDS: PANTOPRAZOLE 40 MG TABLET PO SCH (07:54)
[2023-12-25 09:12] VITALS: BP 157/71; PULSE 63; RESP 16; TEMP 97.7
--- NOTE | 2023-12-25 09:58 | P.DS ---
Providers Date of admission: 12/24/23 10:26 Expected date of discharge: 12/25/23 Attending physician: Jamie Sams Consults: 12/22/23 20:05 Consult Physician Urgent Consulting Provider: Deonna Lazaro Consult Reason/Comments: gi hemorrhage Do you want consulting provider notified?: Yes Primary care physician: [facility] Course: Discharge diagnoses; Shortness of breath Chest pain GI bleed Antral gastric ulcers Antral erosive gastritis Melena Anemia FOBT positive Hypertension hyperlipidemia History of CHF Hospital course; patient 78-year-old lady with a past medical history significant for COPD who presented to the ER because of shortness of breath. Patient said that she was all right last night when were making dinner she noticed that she was getting sh ort of breath. Shortness of breath was present at rest as on exertion. Patient also complaining of chest pressure that was central location, nonradiating. Only mild exertion made her out of breath. Patient was complaining of cough. There was no complaint of fever or chills. Denies any nausea or vomiting. Denies any abdominal pain. There is no complaint of diarrhea and dizziness. Because of the symptoms, patient presented to the ER Initial lab work done in the ER showed WBC 10.3, hemoglobin 10.1, platelet count 240, sodium 130s, potassium 4.1, BUN 17, creatinine 0.90, glucose 173, lactate 1.6, AST 18, ALT 13, troponin 0.012, stool for fecal occult positive Influenza A not detected Influenza B not detected RSV not detected COVID-19 not detected EKG done in the ER showed heart rate of 108, no ST segment elevation or depression seen, no T-wave inversions seen. Chest x-ray done in the ER no acute cardiopulmonary process, COPD changes Patient admitted to internal medicine service 12/23. Patient seen and examined. Blood work done this morning showed hemoglobin 6.9, will order 1 unit of packed red blood cell. 2D echo done showed hyperdynamic left ventricle, no valvular abnormality 12/24. Patient seen and examined. Patient underwent EGD showing 1 cm and 5 mm antral ulcers with no active bleeding, antral erosive gastritis and mild duodenitis. GI recommended Protonix twice a day and to follow-up outpatient. Cardiology also on the patient, recommend discontinue Bumex. Patient to follow- up outpatient with PCP PHYSICAL EXAMINATION: GENERAL: The patient is alert and oriented x3, not in any acute distress. Well developed, well nourished. HEENT: Pupils are round and equally reacting to light. EOMI. No scleral icterus. No conjunctival pallor. Normocephalic, atraumatic. No pharyngeal erythema. No thyromegaly. CARDIOVASCULAR: S1 and S2 present. No murmurs, rubs, or gallops. PULMONARY: Chest is clear to auscultation, no wheezing or crackles. ABDOMEN: Soft, nontender, nondistended, normoactive bowel sounds. No palpable organomegaly. MUSCULOSKELETAL: No joint swelling or deformity. EXTREMITIES: No cyanosis, clubbing, or pedal edema. NEUROLOGICAL: Gross neurological examination did not reveal any focal deficits. SKIN: No rashes. Dictation was produced using [employer] dictation software. please excuse any grammatical, word or spelling errors. Patient Condition at Discharge: Fair Plan - Discharge Summary Discharge Rx Participant: Yes New Discharge Prescriptions: New Pantoprazole [Protonix] 40 mg PO AC-BID #60 tab Continue Latanoprost/Pf [Latanoprost 0.005% Eye Drop] 1 drop BOTH EYES HS Donepezil [Aricept] 10 mg PO HS Magnesium Oxide [Magnesium] 500 mg PO HS Lutein-Zeaxanthin 25-5mg 1 cap PO HS rOPINIRole HCL [Requip] 1 mg PO HS Simvastatin [Zocor] 20 mg PO DAILY LORazepam [Ativan] 2 mg PO DAILY glipiZIDE XL [Glucotrol XL] 2.5 mg PO DAILY Calcium Carbonate [Calcium] 1,200 mg PO DAILY Cholecalciferol (Vitamin D3) [Vitamin D3 (50 Mcg = 2000 Iu)] 100 mcg PO DAILY LORazepam 2 mg PO HS PRN PRN Reason: Anxiety Multivit-Min/Iron/Folic/Lutein [Centrum Silver Women Tablet] 1 tab PO DAILY Discontinued Potassium Chloride ER [K-Dur 20] 20 meq PO BID Bumetanide [BUMEX] 2 mg PO HS Aspirin EC [Ecotrin Low Dose] 81 mg PO HS Discharge Medication List Donepezil [Aricept] 10 mg PO HS 06/26/21 [History] LORazepam [Ativan] 2 mg PO DAILY 06/26/21 [History] Latanoprost/Pf [Latanoprost 0.005% Eye Drop] 1 drop BOTH EYES HS 06/26/21 [History] Simvastatin [Zocor] 20 mg PO DAILY 06/26/21 [History] glipiZIDE XL [Glucotrol XL] 2.5 mg PO DAILY 06/26/21 [History] rOPINIRole HCL [Requip] 1 mg PO HS 06/26/21 [History] Calcium Carbonate [Calcium] 1,200 mg PO DAILY 12/22/23 [History] Cholecalciferol (Vitamin D3) [Vitamin D3 (50 Mcg = 2000 Iu)] 100 mcg PO DAILY 12/22/23 [History] LORazepam 2 mg PO HS PRN 12/22/23 [History] Lutein-Zeaxanthin 25-5mg 1 cap PO HS 12/22/23 [History] Magnesium Oxide [Magnesium] 500 mg PO HS 12/22/23 [History] Multivit-Min/Iron/Folic/Lutein [Centrum Silver Women Tablet] 1 tab PO DAILY 12/22/23 [History] Pantoprazole [Protonix] 40 mg PO AC-BID #60 tab 12/25/23 [Rx] Follow up Appointment(s)/Referral(s): Deonna Lazaro MD [STAFF PHYSICIAN] - 2 Weeks Eloy Rudolph DO [Primary Care Provider] - 1-2 days Discharge Disposition: HOME SELF-CARE
[2023-12-25 12:24] LABS: Glucose,Whole Blood 128 mg/dL (70-110)
--- NOTE | 2023-12-25 14:19 | P.PN ---
Subjective Progress Note Date: 12/25/23 Principal diagnosis: GI bleed This a pleasant 78-year-old female who presented to the emergency department with complaints of shortness of breath. She has a past medical history including COPD, diabetes mellitus, hyperlipidemia, memory impairment, osteoarthritis, and obesity. Apparently while she was in the emergency room they noted that she had some anemia compared to previous labs. They did a stool for occult blood which was positive and had noticed a drop in her hemoglobin today. Gastroenterology was consulted for GI bleed. Patient states that she had some black stool for the last 2 days duration. No previous history of GI bleed. Denies any anticoagulation use. Does take Advil regularly about 2-3 times a week as well as a low-dose baby aspirin. Denies any abdominal pain, nausea or vomiting. States she has had a colonoscopy in the past however it has been many years. No history of peptic ulcer disease no previous EGD. 12/25/2023 Patient seen and examined today as a follow-up. Yesterday she underwent upper endoscopy with findings of 2 antral ulcers and gastritis as well as duodenitis. Today she states no abdominal pain, nausea or vomiting. No blood in her stool or black stool noted. Hemoglobin improved to 8.6. She is status post 2 units of blood. Objective - Vital Signs Vital signs: Vital Signs Temp 97.9 F 12/25/23 07:48 Pulse 93 12/25/23 07:48 Resp 20 12/25/23 07:48 BP 161/75 12/25/23 07:48 Pulse Ox 98 12/25/23 07:48 FiO2 Intake & Output 12/24/23 12/25/23 12/25/23 18:59 06:59 18:59 Intake Total 840 320 Balance 840 320 Weight 122.2 kg Intake: IV 100 Oral 120 320 Blood Product 620 As-1 Unit 310 [id number] As-1 Unit 310 [id number] Other: Voiding Method Toilet Toilet Toilet # Voids 3 2 1 # Bowel Movements 1 1 1 - Exam General appearance: The patient is alert, oriented, appears in no acute distress . HET: Head is normocephalic and atraumatic. Conjunctiva pink. Sclera anicteric. Neck: Supple without lymphadenopathy. Abdomen: Soft, nontender, nondistended. Extremities: Normal skin color and turgor. No pedal edema Skin: No rashes, no jaundice Neurological: No focal deficits. Alert and oriented. - Labs CBC & Chem 7: 12/25/23 06:14 12/25/23 06:14 Labs: Abnormal Lab Results - Last 24 Hours (Table) 12/24/23 12/24/23 12/24/23 Range/Units 08:15 09:11 11:14 RBC (3.80-5.40) m/uL Hgb (11.4-16.0) gm/dL Hct (34.0-46.0) % Chloride 111 H (98-107) mmol/L BUN 19 H (7-17) mg/dL Glucose 137 H (74-99) mg/dL POC Glucose (mg/dL) 146 H (70-110) mg/dL Total Protein (6.3-8.2) g/dL Albumin (3.5-5.0) g/dL Crossmatch See Detail 12/24/23 12/24/23 12/25/23 Range/Units 16:19 19:57 06:14 RBC 2.92 L (3.80-5.40) m/uL Hgb 8.6 L D (11.4-16.0) gm/dL Hct 26.5 L (34.0-46.0) % Chloride (98-107) mmol/L BUN (7-17) mg/dL Glucose (74-99) mg/dL POC Glucose (mg/dL) 166 H 143 H (70-110) mg/dL Total Protein (6.3-8.2) g/dL Albumin (3.5-5.0) g/dL Crossmatch 12/25/23 12/25/23 Range/Units 06:14 06:15 RBC (3.80-5.40) m/uL Hgb (11.4-16.0) gm/dL Hct (34.0-46.0) % Chloride 109 H (98-107) mmol/L BUN (7-17) mg/dL Glucose 134 H (74-99) mg/dL POC Glucose (mg/dL) 150 H (70-110) mg/dL Total Protein 5.4 L (6.3-8.2) g/dL Albumin 3.1 L (3.5-5.0) g/dL Crossmatch Assessment and Plan (1) Melena Narrative/Plan: 78-year-old female presenting with shortness of breath with history of COPD found to be anemic and had a rectal with positive occult stool. No anticoagulation however does have a history of NSAID use and uses Advil 2-3 times a week as well as being on a low-dose baby aspirin daily. No prior history of peptic ulcer disease or GI bleed. Remote colonoscopy. Need to consider possible upper GI bleed especially in light of elevated BUN. Upper endoscopy completed with findings of 2 nonbleeding antral ulcers, gastritis and duodenitis. Continue with Protonix 40 mg twice daily, avoid NSAID use. Status: Acute Code(s): K92.1 - MELENA SNOMED Code(s): 1144707 (2) Anemia Status: Acute Code(s): D64.9 - ANEMIA, UNSPECIFIED SNOMED Code(s): 163909020 (3) Shortness of breath Status: Acute Code(s): R06.02 - SHORTNESS OF BREATH SNOMED Code(s): 163526729 (4) COPD (chronic obstructive pulmonary disease) Status: Acute Code(s): J44.9 - CHRONIC OBSTRUCTIVE PULMONARY DISEASE, UNSPECIFIED SNOMED Code(s): 74628247 Plan: 1. Continue symptomatic and supportive care 2. Diet as tolerated 3. Avoid NSAID use 4. Protonix 40 mg daily for GI prophylaxis Thank you for this consultation, patient is cleared from gastroenterology for discharge. Dr. Maritza Lazaro I agree with the dictator's note, documented as a scribe by Renee Armendariz.
== END 2023-12-25 13:37 | disposition home or self-care (01) | DRG 378 ==
LOC: EC 17:37 → 3SCARD 20:06 → OBSVTOIN 12-24 10:26 → 5NMEDONC 12-25 08:45
PROVIDERS: ADMIT Hospitalist; ATTEND Hospitalist
PROC: 30233N1 Transfusion of Nonautologous Red Blood Cells into Peripheral Vein, Percutaneous Approach (ICD-10-PCS; 2023-12-24)
PROC: 0DB78ZX Excision of Stomach, Pylorus, Via Natural or Artificial Opening Endoscopic, Diagnostic (ICD-10-PCS; principal; 2023-12-24 11:35)
DX: K25.4 Chronic or unspecified gastric ulcer with hemorrhage (principal); D62 Acute posthemorrhagic anemia; E11.9 Type 2 diabetes mellitus without complications; I11.0 Hypertensive heart disease with heart failure; I50.9 Heart failure, unspecified; J44.9 Chronic obstructive pulmonary disease, unspecified; E78.5 Hyperlipidemia, unspecified; F41.9 Anxiety disorder, unspecified; R00.0 Tachycardia, unspecified; K29.60 Other gastritis without bleeding; K29.20 Alcoholic gastritis without bleeding; K29.80 Duodenitis without bleeding; Z79.82 Long term (current) use of aspirin; Z79.84 Long term (current) use of oral hypoglycemic drugs; Z79.899 Other long term (current) drug therapy; Z87.891 Personal history of nicotine dependence; Z88.1 Allergy status to other antibiotic agents; Z91.018 Allergy to other foods
CPT/HCPCS: 36415; 43239; 71046; 80048; 80053; 82272; 83605; 83735; 83880; 84484; 85025; 85027; 85379; 85610; 85730; 86850; 86900; 86901; 86920; 87636; 88305; 93005; 93306; 96361; 96374; 96376; 99285

== ENCOUNTER → 2024-09-09 | Outpatient (CLI) | payer MEDICARE ==
[2024-09-09 10:16] LABS: Basophils # (A) 0.02 X 10*3/uL (0.00-0.10); Basophils % (A) 0.4 %; Eosinophils # (A) 0.27 X 10*3/uL (0.04-0.35); Eosinophils % (A) 5.2 %; HCT 41.8 % (37.2-46.3); Lymphocytes # (A) 1.08 X 10*3/uL (0.90-5.00); Lymphocytes % (A) 20.7 %; MCH 25.8 pg (27.0-32.0); MCHC 31.1 g/dL (32.0-37.0); MCV 83.1 FL (80.0-97.0); Mean Platelet Volume 11.1 FL (9.5-12.2); Monocytes # (A) 0.45 X 10*3/uL (0.20-1.00); Monocytes % (A) 8.6 %; NRBC Per 100 WBC 0 X 10*3/uL (0.00-0.01); Neutrophils # (A) 3.39 X 10*3/uL (1.80-7.70); Neutrophils % (A) 64.7 %; Platelet Count 184 X 10*3/uL (140-440); RBC 5.03 X 10*6/uL (4.10-5.20); RDW 16.9 % (11.5-14.5); WBC 5.23 X 10*3/uL (4.50-10.00)
[2024-09-09 10:29] LABS: BUN/Creat Ratio 24.14 Ratio (12.00-20.00); Blood Urea Nitrogen 16.9 mg/dL (9.0-27.0); Chloride 101 mmol/L (96-109); Glucose 142 mg/dL (70-110); Potassium 4.5 mmol/L (3.5-5.5); Sodium 137 mmol/L (135-145)
[2024-09-09 11:35] LABS: INR 1.03 sec (0.93-1.11); Prothrombin Time 11.7 sec (9.9-11.9)
== END | disposition home or self-care (01) ==
LOC: LABPAT 07:03
PROVIDERS: ATTEND Orthopaedic Surgery
DX: M17.11 Unilateral primary osteoarthritis, right knee (principal); Z01.818 Encounter for other preprocedural examination; Z22.322 Carrier or suspected carrier of Methicillin resistant Staphylococcus aureus
CPT/HCPCS: 80048; 85025; 85610; 87070; 93005

== ENCOUNTER 2024-09-27 08:09 | Day surgery (SDC) | payer MEDICARE ==
[~2024-09-27 08:09] MED LIST changes: -FAMOTIDINE 20 MG/2 ML VIAL IV PRN; +HYDROmorphone 0.5 MG/0.5 ML SYRINGE IVP PRN; -LACTATED RINGERS 1,000 ML IV SCH; +LIDOCAINE 1% (10MG/ML) FOR IV START INTRADERMA PRN; -ONDANSETRON 4 MG/2 ML VIAL IVP ONE; +TRANEXAMIC ACID 1,000 MG in SODIUM CHLORIDE 0.9% 100 ML IRRIGATION SCH
[2024-09-27] MEDS: IV FLUID CONTINUATION 1,000 ML IV ONE (08:40)
[2024-09-27] MEDS: LACTATED RINGERS 1,000 ML IV SCH (08:41)
[2024-09-27] MEDS: ONDANSETRON 4 MG/2 ML VIAL IVP ONE (08:42)
[2024-09-27] MEDS: MELOXICAM 7.5 MG TAB PO STA (08:42)
[2024-09-27] MEDS: ACETAMINOPHEN TAB 500 MG TAB PO STA (08:42)
[2024-09-27] MEDS: DEXAMETHASONE SOD PHOSPHATE 4 MG/ML 1 ML VIAL IV ONE (08:42)
[2024-09-27 08:46] LABS: Glucose,Whole Blood 132 mg/dL (70-110)
[2024-09-27] MEDS: MIDAZOLAM 2 MG/2 ML VIAL IV ONE (09:13)
[2024-09-27] MEDS ORDERED: diphenhydrAMINE 50 MG/ML 1 ML VIAL ONE (09:58)
[2024-09-27] MEDS ORDERED: PROPOFOL 10 MG/ML 20 ML VIAL IV ONE (09:58)
[2024-09-27] MEDS ORDERED: HYDROmorphone (PF) 1 MG/ML ONE (09:58)
[2024-09-27] MEDS ORDERED: TRANEXAMIC 1,000 MG/100ML-NACL PREMIX BAG ONE (09:58)
[2024-09-27] MEDS: LACTATED RINGERS 1,000 ML IV ONE (11:51)
[2024-09-27] MEDS ORDERED: HYDROcodone/APAP 5-325MG 1 EACH TAB PO PRN (11:58)
[2024-09-27] MEDS ORDERED: ONDANSETRON 4 MG/2 ML VIAL IVP PRN (11:58)
[2024-09-27] MEDS ORDERED: NALOXONE 0.4 MG/ML 1 ML VIAL IV PRN (11:58)
[2024-09-27] MEDS ORDERED: HYDROmorphone 0.5 MG/0.5 ML SYRINGE IVP PRN ×2 (11:58)
--- NOTE | 2024-09-27 11:58 | P.OP ---
Date of Procedure: 09/27/24 Preoperative Diagnosis: Right knee osteoarthritis Postoperative Diagnosis: Right knee osteoarthritis Procedure(s) Performed: Right total knee arthroplasty Implants: 1. DePuy attune size 6 right cruciate retaining cemented femur 2. DePuy attune size 6 fixed-bearing cemented tibial baseplate 3. DePuy attune size 6 fixed-bearing cruciate retaining 8 mm polyethylene tibial insert 4. DePuy attune 38 mm all polyethylene cemented patella Anesthesia: spinal Surgeon: Cuong Quiroz Bait Maker #1: Rogelio Chauhan Estimated Blood Loss (ml): 75 Pathology: none sent Condition: stable Disposition: PACU Indications for Procedure: 79-year-old patient seen with symptomatic right knee osteoarthritis. After having treatment options discussed, she elected to proceed with total knee arthroplasty. Operative Findings: See description of procedure Description of Procedure: Patient was taken to the operative suite. Patient underwent a spinal anesthetic by the department of anesthesia. Patient was given preoperative IV intake antibiotics and TXA. A well-padded tourniquet was placed about the right lower extremity. The lower extremity was then prepped and draped in the normal sterile orthopedic fashion. The extremity was elevated, a tourniquet was insufflated to 300. A standard anterior incision was made sharply through skin. Dissection was taken down through the subcutaneous soft tissues down to the extensor mechanism. A medial arthrotomy was performed, patella was everted and knee was flexed. There was advanced osteoarthritis noted. I introduced my distal intramedullary femoral drill. I then introduced the distal femoral cutting jig. Ravinder ZIEGLER secured the cutting jig with 2 pins. I held retractors in position while Ravinder ZIEGLER performed the distal femoral resection through the guide area we now removed her distal femoral cutting guide. We now placed our 4-in-1 femoral cutting block and positioned and it was secured with 2 pins by Ravinder ZIEGLER while I held the block in position. The distal femoral finishing was now completed. A proximal tibial cutting guide was positioned. I held the guide in the appropriate position with both hands well Ravinder ZIEGLER inserted stabilizing pins into the guide. Proximal tibial cut was made. We now placed a trial femoral component into position, along with an appropriate size tibial tray and insert. We now took the knee through range of motion and had full extension good flexion and good overall soft tissue balance noted. The patella was everted and stabilized with 2 towel clips held by Ravinder ZIEGLER while I performed a flush with patellar quad tendon utilizing a fresh sawblade. We templated the patella, appropriate drill holes were made. An appropriate trial patella was positioned, knee was taken through full range of motion with the patella tracking very nicely. The trial patella was removed. Drill holes were made through the femoral component. All trial components were removed after marking off the appropriate rotation of the tibia. Retractors were now positioned along the proximal tibia. An appropriate keel punch was made with the appropriate size tibial guide by myself on Ravinder ZIEGLER assisted by holding retractors. At this point appropriate size implants were chosen and opened. The joint was irrigated copiously with pulse lavage mechanical irrigation. The wound was irrigated with pulse lavage mechanical irrigation. We mixed antibiotic methylmethacrylate. We placed the knee into flexion. We placed multiple retractors assisted by Ravinder ZIEGLER to expose the proximal tibia. Once the methyl methacrylate was ready, the tibial component was cemented into place removing any excess methylmethacrylate form by both myself and Ravinder ZIEGLER. The femoral component was cemented into place removing the removing any excess methylmethacrylate performed by both myself and Ravinder ZIEGLER. We then inserted the appropriate size polyethylene tibial insert. We made sure that it was locked into position. We took the knee into full extension, and then back in a flexion making sure we had removed any excess methylmethacrylate. The patellar component was then cemented down and secured with clamp. Excess methylmethacrylate removed. We kept the knee in full extension, patellar clamp in position until methylmethacrylate had hardened. Once it had hardened the patellar clamp was removed. The knee was taken through full range of motion. The patella tracked nicely. There was good soft tissue balancing. The tourniquet was now released. Additional hemostasis was achieved via electrocautery. A second gram of TXA was given. The wound again was irrigated with pulse lavage mechanical irrigation. The extensor mechanism was repaired with Ethibond suture. We checked the repair with range of motion and it was stable. The subcutaneous soft tissues were repaired with Vicryl in layers. The skin was approximated with pernio/Dermabond. Sterile dressings were applied followed by loose web roll and Jay bandage. The patient was transferred to a bed, and taken to recovery in stable and satisfactory condition. Ravinder ZIEGLER assisted with this complex procedure.
--- NOTE | 2024-09-27 13:03 | XR ---
EXAMINATION TYPE: XR knee limited RT DATE OF EXAM: 09/27/2024 12:45 PM COMPARISON: 08/12/2024 CLINICAL INDICATION: Female, 79 years old with history of Evaluation for Postop abnormality and align ment; PHH, pain TECHNIQUE: 2 views FINDINGS: Images show placement of right total knee arthroplasty. Both distal femoral and proximal ti bial components of the prosthesis are well seated without periprosthetic fracture. Alignment grossly anatomic. Anterior soft tissue swelling with scattered soft tissue air as well as intra-articular air related to recent operation. Anterior midline skin jimmie. IMPRESSION: Uncomplicated postoperative appearance right total knee arthroplasty. [facility], Workstation: [facility], 09/27/2024 1:00 PM
[2024-09-27] MEDS: TRANEXAMIC ACID 1,000 MG in SODIUM CHLORIDE 0.9% 100 ML IVPB SCH (13:11)
[2024-09-27] MEDS: SODIUM CHLORIDE 0.9% 1,000 ML IV SCH (13:32)
[2024-09-27] MEDS: HYDROcodone/APAP 5-325MG 1 EACH TAB PO PRN (14:35)
[2024-09-27] MEDS: HYDROmorphone 0.5 MG/0.5 ML SYRINGE IVP PRN (15:42)
[2024-09-27] MEDS: SENNOSIDES-DOCUSATE SODIUM 1 EACH TAB PO SCH (22:00)
[2024-09-27] MEDS: ASPIRIN 81 MG PO SCH (22:00)
[2024-09-28 08:23] LABS: Basophils # (A) 0.02 X 10*3/uL (0.00-0.10); Basophils % (A) 0.2 %; Eosinophils # (A) 0.02 X 10*3/uL (0.04-0.35); Eosinophils % (A) 0.2 %; HCT 36.5 % (37.2-46.3); HGB 11.3 g/dL (12.0-15.0); Immature Grans, Automated 0.30 %; Lymphocytes # (A) 1.03 X 10*3/uL (0.90-5.00); Lymphocytes % (A) 9.2 %; MCH 26.2 pg (27.0-32.0); MCHC 31.0 g/dL (32.0-37.0); MCV 84.7 FL (80.0-97.0); Monocytes # (A) 1.07 X 10*3/uL (0.20-1.00); Monocytes % (A) 9.5 %; NRBC Per 100 WBC 0 X 10*3/uL (0.00-0.01); Neutrophils # (A) 9.07 X 10*3/uL (1.80-7.70); Neutrophils % (A) 80.6 %; Platelet Count 241 X 10*3/uL (140-440); RBC 4.31 X 10*6/uL (4.10-5.20); RDW 16.7 % (11.5-14.5); WBC 11.24 X 10*3/uL (4.50-10.00)
[2024-09-28 08:24] VITALS: BP 138/67; TEMP 98
[2024-09-28] MEDS ORDERED: DEXTROSE 50% SYRINGE 50 ML IVP PRN ×2 (09:48)
[2024-09-28] MEDS ORDERED: MAGNESIUM OXIDE 400 MG TAB PO PRN (09:49)
[2024-09-28] MEDS ORDERED: LORazepam 1 MG TAB PO PRN (09:49)
[2024-09-28] MEDS ORDERED: IPRATROPIUM-ALBUTEROL 3 ML NEB INHALATION PRN (10:06)
[2024-09-28] MEDS: MULTIVITAMINS, THERA 1 EACH TAB PO SCH (11:05)
[2024-09-28] MEDS: VIT A,C & E-LUTEIN-MINERALS 1 EACH TAB PO SCH (11:06)
[2024-09-28] MEDS: PANTOPRAZOLE 40 MG/10 ML VIAL IVP SCH (11:06)
[2024-09-28] MEDS: glipiZIDE 5 MG TAB PO SCH (11:10)
[2024-09-28] MEDS: IPRATROPIUM-ALBUTEROL 3 ML NEB INHALATION SCH (12:04)
[2024-09-28] MEDS: SYMBICORT 160-4.5 MCG INHALER INHALATION SCH (12:04)
[2024-09-28 12:08] VITALS: PULSE 83
--- NOTE | 2024-09-28 12:11 | P.CONS ---
History of Present Illness - Reason for Consult Consult date: 09/28/24 Medical management Requesting physician: Cuong Quiroz - Chief Complaint Right knee osteoarthritis, status post right total knee arthroplasty - History of Present Illness This is a pleasant 79-year-old female with past medical history significant for osteoarthritis, obesity, COPD, diabetes mellitus, hyperlipidemia, memory impairment and multiple other medical issues admitted with right knee osteoarthritis, failed conservative management, status post right total knee arthroplasty. Tolerated procedure well. Pain controlled. Positive diet intake, consumes 75% of breakfast, denies nausea vomiting or diarrhea. Denies abdominal pain. Passing flatus. Denies chest pain, palpitations or shortness of breath.Maintaining O2 sats in the low 90s on room air. PT pending. Review of Systems Constitutional: Denied any fatigue denied any fever. Cardio vascular: denied any chest pain, palpitations Gastrointestinal denied any nausea vomiting Pulmonary: Denied any shortness of breath cough Neurologic denied any new focal deficits ROS Statement: Those systems with pertinent positive or pertinent negative responses have been documented in the HPI. ROS Other: All systems not noted in ROS Statement are negative. Past Medical History Past Medical History: COPD, Diabetes Mellitus, Hyperlipidemia, Memory Impairment, Osteoarthritis (OA) Additional Past Medical History / Comment(s): chronic bronchitis, tripped & fell on 06-26-21 & fx. nose, sprained left wrist, ribs sore but she states no fx.'s, swollen ankles History of Any Multi-Drug Resistant Organisms: None Reported Past Surgical History: Section, Joint Replacement, Orthopedic Surgery Additional Past Surgical History / Comment(s): C/S x2, left knee replaced, left shoulder surg., carpal tunnel surgery, left CTS Past Anesthesia/Blood Transfusion Reactions: No Reported Reaction Past Psychological History: Anxiety Smoking Status: Former smoker Past Alcohol Use History: Occasional Additional Past Alcohol Use History / Comment(s): quit smoking 3 yrs. ago, smoked since early 20, <ppd Past Drug Use History: None Reported - Past Family History Father Family Medical History: AFIB Medications and Allergies Home Medications Medication Instructions Recorded Confirmed Type Donepezil [Aricept] 10 mg PO HS 06/26/21 09/27/24 History Latanoprost/Pf [Latanoprost 0.005% 1 drop BOTH EYES HS 06/26/21 09/27/24 History Eye Drop] Simvastatin [Zocor] 20 mg PO DAILY 06/26/21 09/27/24 History glipiZIDE XL [Glucotrol XL] 2.5 mg PO DAILY 06/26/21 09/27/24 History rOPINIRole HCL [Requip] 1 mg PO HS 06/26/21 09/27/24 History Calcium Carbonate [Calcium] 1,200 mg PO DAILY 12/22/23 09/27/24 History LORazepam 2 mg PO BID PRN 12/22/23 09/27/24 History Lutein-Zeaxanthin 25-5mg 1 cap PO DAILY 12/22/23 09/27/24 History Magnesium Oxide [Magnesium] 500 mg PO HS PRN 12/22/23 09/27/24 History Multivit-Min/Iron/Folic/Lutein 1 tab PO DAILY 12/22/23 09/27/24 History [Centrum Silver Women Tablet] Aspirin [[place] Aspirin EC] 81 mg PO DAILY 09/22/24 09/27/24 History Allergies Allergy/AdvReac Type Severity Reaction Status Date / Time grapefruit Allergy Rash/Hives Verified 09/27/24 08:33 orange Allergy Rash/Hives Verified 09/27/24 08:33 tomato Allergy Rash/Hives Verified 09/27/24 08:33 amoxicillin [From Augmentin] AdvReac Abdominal Verified 09/27/24 08:33 Pain clavulanic acid AdvReac Abdominal Verified 09/27/24 08:33 [From Augmentin] Pain Physical Exam Vitals: Vital Signs Temp Pulse Pulse Pulse Resp BP BP 09/28/24 07:16 98.0 F 91 15 138/67 09/28/24 00:55 97.4 F L 90 16 157/66 09/27/24 19:20 97.9 F 94 16 150/67 09/27/24 16:26 83 162/81 09/27/24 14:45 88 172/87 09/27/24 14:30 72 165/79 09/27/24 14:00 97.6 F 91 16 186/76 09/27/24 12:55 61 16 150/49 09/27/24 12:51 85 17 114/65 09/27/24 12:40 64 16 146/65 09/27/24 12:25 71 16 135/53 09/27/24 12:10 97 F L 91 16 139/62 09/27/24 09:34 73 16 135/62 Pulse Ox 09/28/24 07:16 90 L 09/28/24 00:55 97 09/27/24 19:20 95 09/27/24 16:26 96 09/27/24 14:45 97 09/27/24 14:30 97 09/27/24 14:00 96 09/27/24 12:55 97 09/27/24 12:51 97 09/27/24 12:40 97 09/27/24 12:25 95 09/27/24 12:10 95 09/27/24 09:34 99 Intake and Output 09/27/24 09/28/24 09/28/24 22:59 06:59 14:59 Other: # Voids 3 2 # Bowel Movements 1 General appearance: alert and oriented x 3, appears in no acute distress. HET: Head is normocephalic and atraumatic. Conjunctiva pink. Sclera anicteric. Neck: Supple, no JVD Heart: S1-S2 ,regular rate and rhythm, no murmur or rub Abdomen: Soft, nontender, nondistended. Extremities: Normal skin color and turgor. No pedal edema, no calf tenderness, peripheral pulses intact Skin: Warm and dry, no rashes, Neurological: Cranial nerves II through XII grossly intact .no focal deficits. Strength and sensation grossly intact. Results CBC & Chem 7: 09/28/24 03:22 Labs: Abnormal Lab Results - Last 24 Hours (Table) 09/28/24 Range/Units 03:22 WBC 11.24 H (4.50-10.00) X 10*3/uL Hgb 11.3 L (12.0-15.0) g/dL Hct 36.5 L (37.2-46.3) % MCH 26.2 L (27.0-32.0) pg MCHC 31.0 L (32.0-37.0) g/dL RDW 16.7 H (11.5-14.5) % Neutrophils # 9.07 H (1.80-7.70) X 10*3/uL Monocytes # 1.07 H (0.20-1.00) X 10*3/uL Eosinophils # 0.02 L (0.04-0.35) X 10*3/uL Assessment and Plan Assessment: Right knee osteoarthritis, failed conservative management, status post right total knee arthroplasty Osteoarthritis Morbid obesity, BMI 43 COPD Former nicotine dependence Diabetes mellitus, hemoglobin A1c pending Hypertension Hyperlipidemia Memory impairment Plan: Continue on current medication regime ,monitoring and symptomatic treatment. Pain management and DVT prophylaxis as per primary. Aggressive pulmonary toileting with incentive spirometer reinforced, Symbicort and nebulized bronchodilators ordered. Home meds have been reviewed and resumed accordingly. Tight glycemic control with NovoLog sliding scale ordered in addition to patient's home glipizide. Hemoglobin A1c pending. PT/OT. Thank you for the consult. The impression and plan of care has been dictated as directed. : I performed a history and examination of this patient, discussed the same with the dictator. I agree with the dictator's note ,documented as a scribe. Any additional findings or plans will be noted.
[2024-09-28 12:14] VITALS: RESP 18
[2024-09-28 12:36] LABS: Glucose,Whole Blood 177 mg/dL (70-110)
--- NOTE | 2024-09-28 12:45 | P.PN ---
Subjective Progress Note Date: 09/28/24 Principal diagnosis: Status post right total knee arthroplasty Patient evaluated at bedside, she is resting in her hospital bed. She did very well with physical therapy. She did have to use some IV Dilaudid this morning due to increasing pain. She denies headache, lightheadedness, chest pain or shortness of breath. Objective - Vital Signs Vital signs: Vital Signs Temp 98.0 F 09/28/24 07:16 Pulse 83 09/28/24 12:14 Resp 18 09/28/24 12:14 BP 138/67 09/28/24 07:16 Pulse Ox 90 L 09/28/24 07:16 FiO2 Intake & Output 09/27/24 09/28/24 09/28/24 18:59 06:59 18:59 Intake Total 1300 Output Total 75 Balance 1225 Weight 124.2 kg Intake: IV 1300 Output: Estimated Blood Loss 75 Other: # Voids 3 2 # Bowel Movements 1 - Exam Right lower extremity: Incision is clean, dry, and intact. The foam dressing is in good condition. There is minimal soft tissue swelling and ecchymosis surrounding the medial and lateral aspects of the incision. Calf is soft, no tenderness with palpation. Plantar flexion, dorsiflexion, EHL, FHL are intact. Sensory exam to light touch throughout the extremity is intact, dorsal pedis pulses 2+. - Labs CBC & Chem 7: 09/28/24 03:22 Labs: Abnormal Lab Results - Last 24 Hours (Table) 09/28/24 09/28/24 Range/Units 03:22 12:34 WBC 11.24 H (4.50-10.00) X 10*3/uL Hgb 11.3 L (12.0-15.0) g/dL Hct 36.5 L (37.2-46.3) % MCH 26.2 L (27.0-32.0) pg MCHC 31.0 L (32.0-37.0) g/dL RDW 16.7 H (11.5-14.5) % Neutrophils # 9.07 H (1.80-7.70) X 10*3/uL Monocytes # 1.07 H (0.20-1.00) X 10*3/uL Eosinophils # 0.02 L (0.04-0.35) X 10*3/uL POC Glucose (mg/dL) 177 H (70-110) mg/dL Assessment and Plan Assessment: Postoperative day 1 status post right total knee arthroplasty Plan: Pain control, plan for discharge home on oral medications along with stool softeners DVT prophylaxis, aspirin 81 mg twice a day for 30 days Dressing instructions were discussed, this to include when to remove, showering instructions along with icing and elevating Home PT/nursing after discharge Walker versus cane ambulation were discussed Medical recommendations appreciated Discharge planning: Patient stable for discharge home today Time with Patient: Less than 30
--- NOTE | 2024-09-28 12:51 | P.DS ---
Providers Date of admission: 09/27/2024 Expected date of discharge: 09/28/24 Attending physician: Cuong Quiroz Consults: 09/27/24 11:58 Consult Physician Routine Consulting Provider: Kaleb Franco Reason/Comments: Medical management Do you want consulting provider notified?: Yes Primary care physician: Kaleb Franco Hospital Course: Date of admission: 09/27/2024 Date of discharge: 09/28/2024 Admission diagnosis: Status post right total knee arthroplasty Discharge diagnosis: Same Attending physician: Dr. Quiroz Surgical procedures: Right total knee arthroplasty Brief history: Patient is a 79-year-old female with a history of progressive primary right knee osteoarthritis. At this point patient has failed conservative treatment measures and has opted to proceed with a elective right total knee arthroplasty. Hospital course: Details of patient's surgery can be found in operative report. Patient tolerated the procedure well and was subsequently transported to orthopedic floor. Patient's orthopeidc and medical care was provided daily. Patient had daily laboratory tests performed for evaluation of overall blood counts. Patient had daily physical therapy to include strengthening range of motion as well as education with walker ambulation. Patient was treated with aspirin for their postoperative DVT prophylaxis during their inpatient stay. Patient was noted to have a relatively uneventful postoperative course. Patient reported satisfactory pain control with oral pain medications by postoperative day 0. Patient showed satisfactory progress with physical therapy. Patient moved steadily through the program and had no difficulty meeting the goals by postoperative day 1. Given patient's otherwise satisfactory course and having met physical therapy goals, plan is to discharge patient home on postoperative day 1. Discharge condition/disposition: Patient will be discharged home in stable condition. Discharge medications: Instructions are given on resumption of patient's normal daily medications per primary care recommendation, in addition patient will be prescribed [place] 10 mg / 325 mg, senna S, aspirin 81 mg. Discharge instructions: 1. Wound care and infection precautions, keep incision dry and covered while showering, no lotions, creams, moisturizers. No soaking, tubs, pools, hottubs. Do not scrub over the incision. 2. Weight-bear as tolerated with walker / cane until follow-up. 3. Ice and elevate when necessary. Do not exceed 20 minutes per hour with ice pack. 4. Utilize compression sleeve until seen at first follow up appointment. 5. Visiting nursing care. 6. Home physical therapy including home CPM. 7. Pain meds and anticoagulants per prescription. 8. Pain medication has potential to cause constipation. Increase oral fluid and fiber intake. Contact primary care provider if you have not had a bowel movement within 48 hours after discharge 9. No anti-inflammatory medication until discussed at first post operative visit, this including Motrin, Aleve, Mobic, Diclofenac. 10. Follow up in office at 2 weeks postop with Ravinder Chauhan PA-C/Nghia Armendariz 11. Follow up with your primary care doctor 7-10 days after discharge. 12. Contact [facility] with any questions, . Procedures: Right total knee arthroplasty Patient Condition at Discharge: Good Plan - Discharge Summary Discharge Rx Participant: Yes New Discharge Prescriptions: New Ipratropium-Albuterol Nebulize [Duoneb 0.5 mg-3 mg/3 ml Soln] 3 ml INHALATION Q4H PRN each PRN Reason: Shortness Of Breath Or Wheezing Aspirin [Adult Low Dose Aspirin EC] 81 mg PO BID #60 tab HYDROcodone/APAP 10-325MG [[place] 10-325] 1 tab PO Q6HR PRN 7 Days #28 tab PRN Reason: Pain Budesonide-Formot 160-4.5 Mcg [Symbicort 160-4.5 Mcg Inhaler] 2 puff INHALATION RT-BID #1 each Loratadine [Claritin] 10 mg PO HS #30 tab Sennosides-Docusate Sodium [Senokot-S] 2 each PO HS #60 tab Sennosides/Docusate Sodium [Senna-S 8.6-50 mg Tablet] 2 each PO DAILY PRN #30 tablet PRN Reason: Constipation Continue Latanoprost/Pf [Latanoprost 0.005% Eye Drop] 1 drop BOTH EYES HS Donepezil [Aricept] 10 mg PO HS Magnesium Oxide [Magnesium] 500 mg PO HS PRN PRN Reason: restless leg syndrome Lutein-Zeaxanthin 25-5mg 1 cap PO DAILY rOPINIRole HCL [Requip] 1 mg PO HS Simvastatin [Zocor] 20 mg PO DAILY glipiZIDE XL [Glucotrol XL] 2.5 mg PO DAILY Calcium Carbonate [Calcium] 1,200 mg PO DAILY LORazepam 2 mg PO BID PRN PRN Reason: Anxiety Multivit-Min/Iron/Folic/Lutein [Centrum Silver Women Tablet] 1 tab PO DAILY Discontinued Aspirin [[place] Aspirin EC] 81 mg PO DAILY Discharge Medication List Donepezil [Aricept] 10 mg PO HS 06/26/21 [History] Latanoprost/Pf [Latanoprost 0.005% Eye Drop] 1 drop BOTH EYES HS 06/26/21 [History] Simvastatin [Zocor] 20 mg PO DAILY 06/26/21 [History] glipiZIDE XL [Glucotrol XL] 2.5 mg PO DAILY 06/26/21 [History] rOPINIRole HCL [Requip] 1 mg PO HS 06/26/21 [History] Calcium Carbonate [Calcium] 1,200 mg PO DAILY 12/22/23 [History] LORazepam 2 mg PO BID PRN 12/22/23 [History] Lutein-Zeaxanthin 25-5mg 1 cap PO DAILY 12/22/23 [History] Magnesium Oxide [Magnesium] 500 mg PO HS PRN 12/22/23 [History] Multivit-Min/Iron/Folic/Lutein [Centrum Silver Women Tablet] 1 tab PO DAILY 12/22/23 [History] Aspirin [Adult Low Dose Aspirin EC] 81 mg PO BID #60 tab 09/28/24 [Rx] Budesonide-Formot 160-4.5 Mcg [Symbicort 160-4.5 Mcg Inhaler] 2 puff INHALATION RT-BID #1 each 09/28/24 [Rx] HYDROcodone/APAP 10-325MG [[place] 10-325] 1 tab PO Q6HR PRN 7 Days #28 tab 09/28/24 [Rx] Ipratropium-Albuterol Nebulize [Duoneb 0.5 mg-3 mg/3 ml Soln] 3 ml INHALATION Q4H PRN each 09/28/24 [Rx] Loratadine [Claritin] 10 mg PO HS #30 tab 09/28/24 [Rx] Sennosides-Docusate Sodium [Senokot-S] 2 each PO HS #60 tab 09/28/24 [Rx] Sennosides/Docusate Sodium [Senna-S 8.6-50 mg Tablet] 2 each PO DAILY PRN #30 tablet 09/28/24 [Rx] Follow up Appointment(s)/Referral(s): [facility] [NON-STAFF] - 1 Week Kaleb Franco DO [Primary Care Provider] - 1 Week [facility] [NON-STAFF] - 1 Week Rogelio Chauhan PAC [PHYSICIAN SUPERVISOR MACHINING] - 10/12/24 2:10 pm Activity/Diet/Wound Care/Special Instructions: Patient reports she has nebulized treatments at home, using as needed. Orthopedic Discharge Instructions 1. Wound care and infection precautions, keep incision dry and covered while showering, no lotions, creams, moisturizers. No soaking, pools, hot tubs. Do not scrub over incision. 2. Weight-bear as tolerated with walker / cane until follow-up. 3. Ice and elevate when necessary. Do not exceed 20 minutes per hour with ice pack. 4. Utilize compression sleeve until seen at first follow up appointment. 5. Pain meds and anticoagulants per prescription. 6. Pain medication has potential to cause constipation. Increase oral fluid and fiber intake. Contact primary care provider if you have not had a bowel movement within 48 hours after discharge. 7. No anti-inflammatory medication until discussed at first post operative visit, this including Motrin, Aleve, Mobic, Diclofenac. 8. Follow up in office at 2 weeks postop with Ravinder Chauhan PA-C/Nghia Winters PA-C 9. Follow up with your primary care doctor 7-10 days after discharge. 10. Contact [facility] with any questions, . Wound care instructions: 1. Okay to remove surgical dressing as of 10/06/2024 2. Okay to shower directly over incision after removal of dressing Discharge Disposition: HOME WITH HOME HEALTH SERVICES
[2024-09-28] MEDS: INSULIN LISPRO (HumaLOG) 100 UNIT/ML 10 mL VL SQ SCH (13:03)
[2024-09-28] MEDS ORDERED: LATANOPROST 0.005% OPHTH DROPS 2.5 ML BTL BOTH EYES SCH (21:00)
[2024-09-28] MEDS ORDERED: DONEPEZIL 10 MG TAB PO SCH (21:00)
== END 2024-09-28 15:12 | disposition home health service (06) ==
LOC: OR 08:09 → 4SSUR 12:11 → OR 09-28 15:12
PROVIDERS: ATTEND Orthopaedic Surgery
DX: M17.11 Unilateral primary osteoarthritis, right knee (principal); E11.9 Type 2 diabetes mellitus without complications; E66.01 Morbid (severe) obesity due to excess calories; E78.5 Hyperlipidemia, unspecified; I10 Essential (primary) hypertension; J44.9 Chronic obstructive pulmonary disease, unspecified; Z68.41 Body mass index [BMI] 40.0-44.9, adult; Z79.82 Long term (current) use of aspirin; Z79.84 Long term (current) use of oral hypoglycemic drugs; Z88.0 Allergy status to penicillin; Z88.1 Allergy status to other antibiotic agents; Z79.899 Other long term (current) drug therapy
CPT/HCPCS: 94640 ×2; 97161; 85025; 73560; 27447; C1776; C1713 ×2; J2250; J1100; J0690 ×2; J2405; J1171 ×2; J2470